=== PATIENT | female | born 1950 | race Caucasian/White ===

== ENCOUNTER 2020-01-24 13:38 | Inpatient (IN) | payer MEDICARE ==
[2020-01-24] MEDS ORDERED: FUROSEMIDE 10 MG/ML 4 ML VIAL IV STA (14:28)
--- NOTE | 2020-01-24 14:32 | ED ---
General Adult HPI - General Source: patient, EMS, RN notes reviewed, old records reviewed Mode of arrival: wheelchair Limitations: no limitations <John Garcia - Last Filed: 01/24/20 15:39> <Santi Shah - Last Filed: 01/25/20 20:08> - General Chief complaint: Psychiatric Symptoms Stated complaint: Mental health Time Seen by Provider: 01/24/20 13:40 - History of Present Illness Initial comments: This is a 69-year-old female who presents emergency Department because she was threatening to kill her and her wanted to come in to be evaluated. Patient stopped taking all of her medications yesterday. Patient does have a psychiatric history. Patient also states she has been swelling in her legs a lot more but she hasn't taken her Lasix last couple of days. Patient denies any chest pain or palpitations. Patient states she is coughing quite a bit and coughing up some sputum. Patient denies any fever chills per patient denies being around anyone with COVID. Patient is somewhat of a poor historian because she is manic and very tangential in her thinking and is difficult to as sess whether she is being accurate or not and at this time the is not available (John Garcia) - Related Data Home Medications Medication Instructions Recorded Confirmed Diltiazem HCl 120 mg PO DAILY 01/24/20 01/24/20 Furosemide [Lasix] 40 mg PO DAILY 01/24/20 01/24/20 Hydrocortisone Oint 1 applic TOPICAL DAILY PRN 01/24/20 01/24/20 [Hydrocortisone 2.5% Oint] Lisinopril 40 mg PO DAILY 01/24/20 01/24/20 Allergies Allergy/AdvReac Type Severity Reaction Status Date / Time influenza virus vaccine, Allergy Swelling Verified 01/24/20 15:00 specific Iodine and Iodide Containing Allergy Rash/Hives Verified 01/24/20 18:10 Produc aspirin AdvReac urinating Verified 01/24/20 15:00 blood codeine AdvReac Nausea Verified 01/24/20 15:00 Review of Systems ROS Other: All systems not noted in ROS Statement are negative. <John Garcia - Last Filed: 01/24/20 15:39> ROS Other: All systems not noted in ROS Statement are negative. <Santi Shah - Last Filed: 01/25/20 20:08> ROS Statement: Those systems with pertinent positive or pertinent negative responses have been documented in the HPI. Past Medical History Past Medical History: COPD, Hypertension History of Any Multi-Drug Resistant Organisms: None Reported Past Surgical History: Hysterectomy, Orthopedic Surgery Past Psychological History: Bipolar Smoking Status: Former smoker Past Alcohol Use History: Occasional Past Drug Use History: None Reported <John Garcia - Last Filed: 01/24/20 15:39> General Exam Limitations: no limitations <John Garcia - Last Filed: 01/24/20 15:39> - General Exam Comments Initial Comments: GENERAL: Patient is well-developed and well-nourished. Patient is nontoxic and well- hydrated and is in mild distress. Patient is coughing quite a bit as well. ENT: Neck is soft and supple. No significant lymphadenopathy is noted. Oropharynx is clear. Moist mucous membranes. Neck has full range of motion without el iciting any pain. EYES: The sclera were anicteric and conjunctiva were pink and moist. Extraocular movements were intact and pupils were equal round and reactive to light. Eyelids were unremarkable. PULMONARY: Patient has crackles bilaterally. CARDIOVASCULAR: There is a regular rate and rhythm without any murmurs gallops or rubs. ABDOMEN: Soft and nontender with normal bowel sounds. SKIN: Skin is clear with no lesions or rashes and otherwise unremarkable. NEUROLOGIC: Patient is alert and oriented x3. Cranial nerves II through XII are grossly intact. Motor and sensory are also intact. Normal speech, volume and content. Symmetrical smile. MUSCULOSKELETAL: Normal extremities with adequate strength and full range of motion. 1+ edema bilaterally LYMPHATICS: No significant lymphadenopathy is noted PSYCHIATRIC: Normal psychiatric evaluation. (John Garcia) Course Vital Signs 01/24/20 01/24/20 01/24/20 13:38 15:50 16:21 Temperature 98.0 F Pulse Rate 69 71 Respiratory 18 Rate Blood Pressure 219/80 209/110 195/97 O2 Sat by Pulse 98 98 Oximetry 01/24/20 01/24/20 01/25/20 17:51 18:53 00:39 Temperature 98.5 F Pulse Rate 74 67 Respiratory 18 16 Rate Blood Pressure 200/118 140/77 129/78 O2 Sat by Pulse 98 96 Oximetry Medical Decision Making - Lab Data Result diagrams: 01/24/20 15:15 01/24/20 15:15 <John Garcia - Last Filed: 01/24/20 15:39> - Lab Data Result diagrams: 01/24/20 15:15 01/24/20 15:15 <Santi Shah - Last Filed: 01/25/20 20:08> - Medical Decision Making EKG shows sinus bradycardia 56 bpm MT interval 260 QRS is 78 QT interval 446 QTC is 4:30. Patient's EKG shows no ST segment elevation or depression. Dr. Shah will be taking over the care of this patient at 3:30 (John Garcia) Patient's care was signed out awaiting workup for dyspnea and cough. Patient had chest x-ray which was negative for acute cardiopulmonary findings. She did have an elevated d-dimer and receives CT angiography which showed a nonspecific groundglass opacity in the right upper lobe no pulmonary embolism, no other acute findings. Blood pressure was initially elevated however the patient had not taken her anti-hypertensive medications were administered in the emergency department and her blood pressure did normalize. She has been medically cleared and is currently awaiting EPS evaluation. (Santi Shah) - Lab Data Lab Results 01/24/20 01/24/20 01/24/20 Range/Units 15:15 15:15 15:15 WBC 11.0 H (3.8-10.6) k/uL RBC 4.70 (3.80-5.40) m/uL Hgb 15.0 (11.4-16.0) gm/dL Hct 44.9 (34.0-46.0) % MCV 95.7 (80.0-100.0) fL MCH 31.9 (25.0-35.0) pg MCHC 33.4 (31.0-37.0) g/dL RDW 12.1 (11.5-15.5) % Plt Count 328 (150-450) k/uL Neutrophils % 70 % Lymphocytes % 18 % Monocytes % 4 % Eosinophils % 5 % Basophils % 1 % Neutrophils # 7.8 H (1.3-7.7) k/uL Lymphocytes # 2.0 (1.0-4.8) k/uL Monocytes # 0.5 (0-1.0) k/uL Eosinophils # 0.5 (0-0.7) k/uL Basophils # 0.1 (0-0.2) k/uL PT 9.4 (9.0-12.0) sec INR 0.9 (<1.2) APTT 24.7 (22.0-30.0) sec D-Dimer 0.85 H (<0.60) mg/L FEU Sodium (137-145) mmol/L Potassium (3.5-5.1) mmol/L Chloride (98-107) mmol/L Carbon Dioxide (22-30) mmol/L Anion Gap mmol/L BUN (7-17) mg/dL Creatinine (0.52-1.04) mg/dL Est GFR (CKD-EPI)AfAm (>60 ml/min/1.73 sqM) Est GFR (CKD-EPI)NonAf (>60 ml/min/1.73 sqM) Glucose (74-99) mg/dL Plasma Lactic Acid David (0.7-2.0) mmol/L Calcium (8.4-10.2) mg/dL Magnesium (1.6-2.3) mg/dL Total Bilirubin (0.2-1.3) mg/dL AST (14-36) U/L ALT (4-34) U/L Alkaline Phosphatase (38-126) U/L Troponin I (0.000-0.034) ng/mL NT-Pro-B Natriuret Pep pg/mL Total Protein (6.3-8.2) g/dL Albumin (3.5-5.0) g/dL Urine Opiates Screen Detected H (NotDetected) Ur Oxycodone Screen Not Detected (NotDetected) Urine Methadone Screen Not Detected (NotDetected) Ur Propoxyphene Screen Not Detected (NotDetected) Ur Barbiturates Screen Not Detected (NotDetected) U Tricyclic Antidepress Not Detected (NotDetected) Ur Phencyclidine Scrn Not Detected (NotDetected) Ur Amphetamines Screen Not Detected (NotDetected) U Methamphetamines Scrn Not Detected (NotDetected) U Benzodiazepines Scrn Not Detected (NotDetected) Urine Cocaine Screen Not Detected (NotDetected) U Marijuana (THC) Screen Not Detected (NotDetected) Coronavirus (PCR) (Not Detectd) 01/24/20 01/24/20 01/24/20 Range/Units 15:15 15:15 15:15 WBC (3.8-10.6) k/uL RBC (3.80-5.40) m/uL Hgb (11.4-16.0) gm/dL Hct (34.0-46.0) % MCV (80.0-100.0) fL MCH (25.0-35.0) pg MCHC (31.0-37.0) g/dL RDW (11.5-15.5) % Plt Count (150-450) k/uL Neutrophils % % Lymphocytes % % Monocytes % % Eosinophils % % Basophils % % Neutrophils # (1.3-7.7) k/uL Lymphocytes # (1.0-4.8) k/uL Monocytes # (0-1.0) k/uL Eosinophils # (0-0.7) k/uL Basophils # (0-0.2) k/uL PT (9.0-12.0) sec INR (<1.2) APTT (22.0-30.0) sec D-Dimer (<0.60) mg/L FEU Sodium 137 (137-145) mmol/L Potassium 4.1 (3.5-5.1) mmol/L Chloride 102 (98-107) mmol/L Carbon Dioxide 27 (22-30) mmol/L Anion Gap 8 mmol/L BUN 21 H (7-17) mg/dL Creatinine 0.69 (0.52-1.04) mg/dL Est GFR (CKD-EPI)AfAm >90 (>60 ml/min/1.73 sqM) Est GFR (CKD-EPI)NonAf 89 (>60 ml/min/1.73 sqM) Glucose 102 H (74-99) mg/dL Plasma Lactic Acid David 0.8 (0.7-2.0) mmol/L Calcium 9.7 (8.4-10.2) mg/dL Magnesium 2.4 H (1.6-2.3) mg/dL Total Bilirubin 0.6 (0.2-1.3) mg/dL AST 27 (14-36) U/L ALT 28 (4-34) U/L Alkaline Phosphatase 69 (38-126) U/L Troponin I <0.012 (0.000-0.034) ng/mL NT-Pro-B Natriuret Pep pg/mL Total Protein 7.4 (6.3-8.2) g/dL Albumin 4.6 (3.5-5.0) g/dL Urine Opiates Screen (NotDetected) Ur Oxycodone Screen (NotDetected) Urine Methadone Screen (NotDetected) Ur Propoxyphene Screen (NotDetected) Ur Barbiturates Screen (NotDetected) U Tricyclic Antidepress (NotDetected) Ur Phencyclidine Scrn (NotDetected) Ur Amphetamines Screen (NotDetected) U Methamphetamines Scrn (NotDetected) U Benzodiazepines Scrn (NotDetected) Urine Cocaine Screen (NotDetected) U Marijuana (THC) Screen (NotDetected) Coronavirus (PCR) (Not Detectd) 01/24/20 01/24/20 Range/Units 15:15 20:06 WBC (3.8-10.6) k/uL RBC (3.80-5.40) m/uL Hgb (11.4-16.0) gm/dL Hct (34.0-46.0) % MCV (80.0-100.0) fL MCH (25.0-35.0) pg MCHC (31.0-37.0) g/dL RDW (11.5-15.5) % Plt Count (150-450) k/uL Neutrophils % % Lymphocytes % % Monocytes % % Eosinophils % % Basophils % % Neutrophils # (1.3-7.7) k/uL Lymphocytes # (1.0-4.8) k/uL Monocytes # (0-1.0) k/uL Eosinophils # (0-0.7) k/uL Basophils # (0-0.2) k/uL PT (9.0-12.0) sec INR (<1.2) APTT (22.0-30.0) sec D-Dimer (<0.60) mg/L FEU Sodium (137-145) mmol/L Potassium (3.5-5.1) mmol/L Chloride (98-107) mmol/L Carbon Dioxide (22-30) mmol/L Anion Gap mmol/L BUN (7-17) mg/dL Creatinine (0.52-1.04) mg/dL Est GFR (CKD-EPI)AfAm (>60 ml/min/1.73 sqM) Est GFR (CKD-EPI)NonAf (>60 ml/min/1.73 sqM) Glucose (74-99) mg/dL Plasma Lactic Acid David (0.7-2.0) mmol/L Calcium (8.4-10.2) mg/dL Magnesium (1.6-2.3) mg/dL Total Bilirubin (0.2-1.3) mg/dL AST (14-36) U/L ALT (4-34) U/L Alkaline Phosphatase (38-126) U/L Troponin I (0.000-0.034) ng/mL NT-Pro-B Natriuret Pep 120 pg/mL Total Protein (6.3-8.2) g/dL Albumin (3.5-5.0) g/dL Urine Opiates Screen (NotDetected) Ur Oxycodone Screen (NotDetected) Urine Methadone Screen (NotDetected) Ur Propoxyphene Screen (NotDetected) Ur Barbiturates Screen (NotDetected) U Tricyclic Antidepress (NotDetected) Ur Phencyclidine Scrn (NotDetected) Ur Amphetamines Screen (NotDetected) U Methamphetamines Scrn (NotDetected) U Benzodiazepines Scrn (NotDetected) Urine Cocaine Screen (NotDetected) U Marijuana (THC) Screen (NotDetected) Coronavirus (PCR) Not Detected (Not Detectd) Disposition <John Garcia - Last Filed: 01/24/20 15:39> Is patient prescribed a controlled substance at d/c from ED?: No Decision to Admit Reason: Admit from EC <Santi Shah - Last Filed: 01/25/20 20:08> Clinical Impression: Depression, Acute psychosis, Homicidal ideation Disposition: ADMITTED IP TO THIS HOSP Condition: Stable
[2020-01-24 15:26] LABS: Basophils # (A) 0.1 k/uL (0-0.2); Basophils % (A) 1 %; Eosinophils # (A) 0.5 k/uL (0-0.7); Eosinophils % (A) 5 %; HCT 44.9 % (34.0-46.0); Lymphocytes % (A) 18 %; MCH 31.9 pg (25.0-35.0); MCHC 33.4 g/dL (31.0-37.0); MCV 95.7 fL (80.0-100.0); Mean Platelet Volume 7.3; Monocytes # (A) 0.5 k/uL (0-1.0); Monocytes % (A) 4 %; Neutrophils # (A) 7.8 k/uL (1.3-7.7); Neutrophils % (A) 70 %; Platelet Count 328 k/uL (150-450); RDW 12.1 % (11.5-15.5)
[2020-01-24 15:33] LABS: ALT 28 U/L (4-34); AST 27 U/L (14-36); African American GFR (CKD) >90 (>60 ml/min/1.73 sqM); Albumin 4.6 g/dL (3.5-5.0); Alkaline Phosphatase 69 U/L (38-126); Anion Gap 8 mmol/L; Blood Urea Nitrogen 21 mg/dL (7-17); Calcium 9.7 mg/dL (8.4-10.2); Carbon Dioxide 27 mmol/L (22-30); Chloride 102 mmol/L (98-107); Glucose 102 mg/dL (74-99); Magnesium 2.4 mg/dL (1.6-2.3); Non-African American GFR(CKD) 89 (>60 ml/min/1.73 sqM); Potassium 4.1 mmol/L (3.5-5.1); Sodium 137 mmol/L (137-145); Total Bilirubin 0.6 mg/dL (0.2-1.3); Total Protein 7.4 g/dL (6.3-8.2)
[2020-01-24 15:35] LABS: Amphetamine Screen,Urine Not Detected (NotDetected); Barbiturate Screen,Urine Not Detected (NotDetected); Benzodiazepines Screen,Urine Not Detected (NotDetected); Cocaine Screen,Urine Not Detected (NotDetected); Methadone Screen, Urine Not Detected (NotDetected); Opiate Screen,Urine Detected (NotDetected); Oxycodone Screen, Urine Not Detected (NotDetected); Phencyclidine Screen,Urine Not Detected (NotDetected); Tricyclic Antidepressant,Urine Not Detected (NotDetected); Urn Cannabinoid Scrn Not Detected (NotDetected)
--- NOTE | 2020-01-24 15:37 | XR ---
EXAMINATION TYPE: XR chest 1V portable DATE OF EXAM: 01/24/2020 COMPARISON: NONE HISTORY: Shortness of breath, cough and congestion TECHNIQUE: Single frontal view of the chest is obtained. FINDINGS: There is no focal air space opacity, pleural effusion, or pneumothorax seen. The cardiac silhouette size is within normal limits. The osseous structures are intact. Patient is rotated. IMPRESSION: No acute process.
[2020-01-24 15:38] LABS: INR 0.9 (<1.2); Partial Thromboplastin Time 24.7 sec (22.0-30.0); Prothrombin Time 9.4 sec (9.0-12.0)
[2020-01-24 15:59] LABS: D-Dimer 0.85 mg/L FEU (<0.60)
[2020-01-24] MEDS ORDERED: LISINOPRIL 20 MG TAB PO STA (16:21)
[2020-01-24] MEDS ORDERED: diphenhydrAMINE 50 MG/ML 1 ML VIAL IVP STA (17:58)
[2020-01-24] MEDS ORDERED: FAMOTIDINE 20 MG/2 ML VIAL IV STA (17:58)
[2020-01-24] MEDS ORDERED: methylPREDNISolone SOD SUCCI 125 MG/2 ML VIAL IV STA (17:58)
[2020-01-24] MEDS ORDERED: DILTIAZEM CD 120 MG CAP.ER.24H PO STA (18:00)
--- NOTE | 2020-01-24 19:04 | CT ---
EXAMINATION TYPE: CT angio chest DATE OF EXAM: 01/24/2020 COMPARISON: Chest x-ray same date HISTORY: Elevated d-dimer. CT DLP: 242.9 mGycm Automated exposure control for dose reduction was used. CONTRAST: CTA scan of the thorax is performed with IV Contrast, patient injected with 100 mL of Isovue 370, pul monary embolism protocol. MIP images are created and reviewed. 3D reconstructed images are created on an independent workstation and reviewed. FINDINGS: LUNGS: The lungs are grossly clear, there is no concerning parenchymal mass or nodule identified. Sub centimeter groundglass focus on axial image 24 in the right upper lobe laterally is of questionable c linical significance. There are scattered emphysematous changes within the lungs. There is no pleur al effusion or pneumothorax seen. The tracheobronchial tree is patent. Bandlike area of increased at tenuation the left lung base may reflect scarring or atelectasis. AORTA: No additional significant abnormality is seen. MEDIASTINUM: There is satisfactory enhancement of the pulmonary artery and its branches, there is no CT evidence for pulmonary embolism. There are no greater than 1 cm hilar or mediastinal lymph nodes. No pericardial effusion is seen. There are coronary calcifications. OTHER: There is a left adrenal mass which shows low attenuation and measures approximately 13 mm. Le ft kidney shows possible parapelvic cysts, difficult to exclude hydronephrosis. There is thoracic spo ndylosis. IMPRESSION: NONSPECIFIC GROUNDGLASS NODULE QUESTIONABLE SIGNIFICANCE RIGHT UPPER LOBE. NO EVIDENT PULMONARY EMBOL US. EMPHYSEMATOUS CHANGES ARE MILD. CORONARY ARTERY DISEASE.
[2020-01-24] MEDS ORDERED: LORazepam 2 MG/ML INJ IV STA (22:01)
[2020-01-25] MEDS ORDERED: ZIPRASIDONE 20 MG VIAL IM PRN (00:21)
[2020-01-25] MEDS ORDERED: ACETAMINOPHEN TAB 325 MG TAB PO PRN (00:21)
[2020-01-25] MEDS ORDERED: MAG HYDROX/AL HYDROX/SIMETH 30 ML CUP PO PRN (00:21)
[2020-01-25] MEDS ORDERED: TRIAMCINOLONE ACET 0.1% OINTMENT 15 GM TUBE TOPICAL PRN (00:24)
[2020-01-25] MEDS ORDERED: LISINOPRIL 20 MG TAB PO SCH (09:00)
[2020-01-25] MEDS: DILTIAZEM CD 120 MG CAP.ER.24H PO SCH (09:29)
--- NOTE | 2020-01-25 10:34 | P.PN ---
Progress Note - Text Progress Note Date: 01/25/20 IDENTIFYING DATA: Patient is a 69-year-old female who currently lives with her in a house has 3 kids HPI: Patient presented to the hospital and was brought in by her who according to ER report is claiming that she was threatening to kill him. Patient was a poor historian in the ER however was exhibiting manic symptoms and evaluated by EPS and team for admission to the mental health unit. Patient apparently has a extensive psychiatric history. She was seen on the unit rambling with pressured speech and was fairly intrusive with staff members. She was agreeable to speak with appeals writer however was difficult to interrupt during the interview. She was tangential and illogical at times and was also bizarre and laughing inappropriately. She spoke about "moving all around the country" and also spoke significantly about [place]. She had racing thoughts and a flight of ideas. She claims that she has poor sleep. Patient was responding to internal stimuli. Patient denies any suicidal or homicidal ideations intent or plan. At this time patient denies any auditory or visual hallucinations. Patient admits to using alcohol occasionally however states that she does not smoke cigarettes or did any other drugs. PAST PSYCHIATRIC HISTORY: Patient states that she has a history of bipolar disorder and has an outpatient psychiatrist named Dr. De Paz. She claims that she was hospitalized "28 years ago when the little ones were small" however did not give much information about the hospitalization and claims that he was at [facility]. She denies any suicide attempts in the past PMH: COPD and hypertension and hyperlipidemia. ALLERGIES: as per EMR CHEMICAL DEPENDENCY HISTORY: as per HPI FAMILY PSYCHIATRIC/SUBSTANCE USE HISTORY: She states that her mother was schizophrenic. SOCIAL HISTORY: Patient was born and raised in [place]. Patient currently lives in [place] with her in a house. She states that she has 3 kids. MENTAL STATUS EXAM: General Appearance: Patient appears to be stated age is short in stature, alert, difficult to redirect and is bizarre and intrusive. Patient appears to have poor hygiene and grooming. Behavior: Patient is seated at times and stands up and appears to be restless and intrusive. Speech: Patient's speech is pressured Mood/Affect: Patient reports their mood is good, affect is congruent Suicidality/Homicidality: Patient denies having any homicidal ideation intent or plan. Denies any suicidal ideations intent or plan Perceptions: Patient denies any visual hallucinations and denies any auditory hallucinations Though content/process: Rambles, illogical, tangential flight of ideas. Memory and concentration: AOX3, unable to fully assess as patient is poor attention span. Judgment and insight: poor STRENGTHS/WEAKNESSES: strength is that patient is resilient. Weakness is that patient has poor judgment and is impulsive INTELLECT: average IMPRESSIONS: Bipolar disorder, severe, currently in manic episode with psychotic features PLAN: -Patient is admitted under involuntary status to MHU for stabilization of psychiatric symptoms and safety. A second certification was completed and along with petition will be filed for court. -Medications : Will start patient on Depakote ER 250mg + 500mg for mood stabilization. We'll also start Risperdal 1 mg twice a day for mood stabilization/psychosis. -Geodon PRN for agitation/aggression -Patient was informed of the risks, benefits and side effects of the medication, however patient refused to sign her medications. -Internal Medicine consult to perform medical evaluation and physical. -NRT - not needed as patient does not smoke -SW on board for discharge planning. Encourage patient to participate in groups to work on coping skills.
[2020-01-25] MEDS: risperiDONE 1 MG TAB PO SCH ×2 (10:51→21:52)
[2020-01-25] MEDS: DIVALPROEX ER 250 MG TAB.ER.24H PO SCH (10:51)
[2020-01-25] MEDS: FUROSEMIDE 40 MG TAB PO SCH (10:51)
[2020-01-25 11:28] LABS: Hemoglobin A1C 5.1 % (4.0-6.0)
--- NOTE | 2020-01-25 21:10 | P.HPIM ---
History of Present Illness H&P Date: 01/25/20 The patient is a 69-year-old female with a PMH of asthma, hypertension, and bipolar disorder who was brought into the ED due to aggressive behavior. The patient had reportedly threatened to kill her and had stopped taking her medications. Patient was noted to be very manic and was admitted to the mental health unit she was seen and evaluated earlier today. The patient was manic during the interview and had tangential thought process. Patient reported that she has been dealing with a nonproductive cough for the past several weeks. She also bilateral lower extremity edema, recently worsened after she stopped taking her Lasix. She denied chest pain, nausea, vomiting, fever, chills, diaphoresis, or diarrhea. She had undergone an extensive evaluation in the emergency room with an EKG showing sinus bradycardia at [address]/T-wave changes noted. She had an elevated d-dimer for which a chest CTA was performed and revealed nonspecific groundglass opacities with no evidence of PE. Laboratory evaluation had revealed a WBC count of 11, hemoglobin 15.0, platelet count 328, troponin less than 0.012, BNP 120, sodium 137, potassium 4.1, BUN 21, creatinine 0.69, and coronavirus testing negative. Review of Systems Pertinent positives and negatives as discussed in HPI, a complete review of systems was performed and all other systems are negative. Past Medical History Past Medical History: COPD, Hypertension History of Any Multi-Drug Resistant Organisms: None Reported Past Surgical History: Hysterectomy, Orthopedic Surgery Past Psychological History: Bipolar Smoking Status: Former smoker Past Alcohol Use History: Occasional Past Drug Use History: None Reported Medications and Allergies Home Medications Medication Instructions Recorded Confirmed Type Diltiazem HCl 120 mg PO DAILY 01/24/20 01/24/20 History Furosemide [Lasix] 40 mg PO DAILY 01/24/20 01/24/20 History Hydrocortisone Oint 1 applic TOPICAL DAILY PRN 01/24/20 01/24/20 History [Hydrocortisone 2.5% Oint] Lisinopril 40 mg PO DAILY 01/24/20 01/24/20 History Allergies Allergy/AdvReac Type Severity Reaction Status Date / Time influenza virus vaccine, Allergy Swelling Verified 01/24/20 15:00 specific Iodine and Iodide Containing Allergy Rash/Hives Verified 01/24/20 18:10 Produc aspirin AdvReac urinating Verified 01/24/20 15:00 blood codeine AdvReac Nausea Verified 01/24/20 15:00 Physical Exam Vitals: Vital Signs Temp Pulse Pulse Pulse Resp BP BP 01/25/20 18:19 98.3 F 01/25/20 10:52 83 135/77 01/25/20 01:45 96.8 F L 77 20 163/90 01/25/20 00:39 98.5 F 67 16 129/78 Pulse Ox 01/25/20 18:19 01/25/20 10:52 01/25/20 01:45 96 01/25/20 00:39 96 Intake and Output 01/25/20 01/25/20 01/25/20 06:59 14:59 22:59 Other: Weight 67.585 kg General: non toxic, no distress, appears at stated age, normal weight Derm: no unusual rashes/lesions no unusual ecchymoses, warm, dry Head: atraumatic, normocephalic, symmetric Eyes: EOMI, no lid lag, anicteric sclera, pupils equal round reactive to light ENT: Nose and ears atraumatic, no thrush, no pharyngeal erythema Neck: No thyromegaly, no cervical lymphadenopathy, trachea midline, supple Mouth: no lip lesion, mucus membranes moist Cardiovascular: S1S2 reg, no murmur, positive posterior tibial pulse bilateral, 1+ tavo LE edema to knees, capillary refill less than 2 seconds Lungs: CTA bilateral, no rhonchi, no rales , no accessory muscle use Abdominal: soft, nontender to palpation, no guarding, no appreciable organomegaly, normal bowel sounds Ext: no gross muscle atrophy, muscle strength 5 out of 5 in all 4 extremities grossly, no contractures Neuro: CN II-XI grossly intact, light touch intact all 4 extremities, finger to nose within normal limits Psych: Alert, oriented, disorganized thought process with tangentiality affect Results CBC & Chem 7: 01/24/20 15:15 01/24/20 15:15 Labs: Abnormal Lab Results - Last 24 Hours (Table) 01/25/20 Range/Units 06:36 Cholesterol 230 H (<200) mg/dL HDL Cholesterol 120 H (40-60) mg/dL Assessment and Plan Plan: Mild acute asthma exacerbation -Start prednisone 40 mg po qd for 1 week -Albuterol inhaler round the clock -Patient will benefit from rescue inhaler upon discharge HALEY edema -BNP wnl -C/w home dose of Lasix HTN -Patient nores hx of reaction with Lisinopril -BP wnl for now -Monitor for now -Unclear why patient is on Cardizem po Bipolar disorder -As per psych
[2020-01-25] MEDS: predniSONE 20 MG TAB PO SCH (21:52)
[2020-01-25] MEDS: DIVALPROEX ER 500 MG TAB.ER.24H PO SCH (21:52)
[2020-01-26] MEDS: DILTIAZEM CD 120 MG CAP.ER.24H PO SCH (08:07)
[2020-01-26] MEDS: predniSONE 20 MG TAB PO SCH (08:07)
[2020-01-26] MEDS: DIVALPROEX ER 250 MG TAB.ER.24H PO SCH (08:07)
[2020-01-26] MEDS: FUROSEMIDE 40 MG TAB PO SCH (08:07)
[2020-01-26] MEDS: risperiDONE 1 MG TAB PO SCH ×2 (08:07→20:30)
[2020-01-26] MEDS: ALBUTEROL NEBULIZED 2.5 MG/3 ML INHALATION SCH ×4 (09:31→20:02)
--- NOTE | 2020-01-26 09:38 | P.HP ---
Psychiatric H&P - . H&P Date: 01/25/20 History & Physical: Allergies Allergy/AdvReac Type Severity Reaction Status Date / Time influenza virus vaccine, Allergy Swelling Verified 01/24/20 15:00 specific Iodine and Iodide Containing Allergy Rash/Hives Verified 01/24/20 18:10 Produc aspirin AdvReac urinating Verified 01/24/20 15:00 blood codeine AdvReac Nausea Verified 01/24/20 15:00 Vital Signs Temp 98.8 F 01/26/20 06:14 Pulse 85 01/26/20 06:14 Resp 16 01/26/20 06:14 BP 155/88 01/26/20 06:14 Pulse Ox 96 01/25/20 01:45 Laboratory Last Values WBC 11.0 k/uL (3.8-10.6) H 01/24/20 15:15 RBC 4.70 m/uL (3.80-5.40) 01/24/20 15:15 Hgb 15.0 gm/dL (11.4-16.0) 01/24/20 15:15 Hct 44.9 % (34.0-46.0) 01/24/20 15:15 MCV 95.7 fL (80.0-100.0) 01/24/20 15:15 MCH 31.9 pg (25.0-35.0) 01/24/20 15:15 MCHC 33.4 g/dL (31.0-37.0) 01/24/20 15:15 RDW 12.1 % (11.5-15.5) 01/24/20 15:15 Plt Count 328 k/uL (150-450) 01/24/20 15:15 Neutrophils % 70 % 01/24/20 15:15 Lymphocytes % 18 % 01/24/20 15:15 Monocytes % 4 % 01/24/20 15:15 Eosinophils % 5 % 01/24/20 15:15 Basophils % 1 % 01/24/20 15:15 Neutrophils # 7.8 k/uL (1.3-7.7) H 01/24/20 15:15 Lymphocytes # 2.0 k/uL (1.0-4.8) 01/24/20 15:15 Monocytes # 0.5 k/uL (0-1.0) 01/24/20 15:15 Eosinophils # 0.5 k/uL (0-0.7) 01/24/20 15:15 Basophils # 0.1 k/uL (0-0.2) 01/24/20 15:15 PT 9.4 sec (9.0-12.0) 01/24/20 15:15 INR 0.9 (<1.2) 01/24/20 15:15 APTT 24.7 sec (22.0-30.0) 01/24/20 15:15 D-Dimer 0.85 mg/L FEU (<0.60) H 01/24/20 15:15 Sodium 137 mmol/L (137-145) 01/24/20 15:15 Potassium 4.1 mmol/L (3.5-5.1) 01/24/20 15:15 Chloride 102 mmol/L (98-107) 01/24/20 15:15 Carbon Dioxide 27 mmol/L (22-30) 01/24/20 15:15 Anion Gap 8 mmol/L 01/24/20 15:15 BUN 21 mg/dL (7-17) H 01/24/20 15:15 Creatinine 0.69 mg/dL (0.52-1.04) 01/24/20 15:15 Est GFR (CKD-EPI)AfAm >90 (>60 ml/min/1.73 sqM) 01/24/20 15:15 Est GFR (CKD-EPI)NonAf 89 (>60 ml/min/1.73 sqM) 01/24/20 15:15 Glucose 102 mg/dL (74-99) H 01/24/20 15:[address] Glu mg/dL 100 01/25/20 06:36 Hemoglobin A1c 5.1 % (4.0-6.0) 01/25/20 06:36 Plasma Lactic Acid David 0.8 mmol/L (0.7-2.0) 01/24/20 15:15 Calcium 9.7 mg/dL (8.4-10.2) 01/24/20 15:15 Magnesium 2.4 mg/dL (1.6-2.3) H 01/24/20 15:15 Total Bilirubin 0.6 mg/dL (0.2-1.3) 01/24/20 15:15 AST 27 U/L (14-36) 01/24/20 15:15 ALT 28 U/L (4-34) 01/24/20 15:15 Alkaline Phosphatase 69 U/L (38-126) 01/24/20 15:15 Troponin I <0.012 ng/mL (0.000-0.034) 01/24/20 15:15 NT-Pro-B Natriuret Pep 120 pg/mL 01/24/20 15:15 Total Protein 7.4 g/dL (6.3-8.2) 01/24/20 15:15 Albumin 4.6 g/dL (3.5-5.0) 01/24/20 15:15 Triglycerides 56 mg/dL (<150) 01/25/20 06:36 Cholesterol 230 mg/dL (<200) H 01/25/20 06:36 LDL Cholesterol, Calc 99 mg/dL (0-99) 01/25/20 06:36 HDL Cholesterol 120 mg/dL (40-60) H 01/25/20 06:36 TSH 0.521 mIU/L (0.465-4.680) 01/25/20 06:36 Urine Opiates Screen Detected (NotDetected) H 01/24/20 15:15 Ur Oxycodone Screen Not Detected (NotDetected) 01/24/20 15:15 Urine Methadone Screen Not Detected (NotDetected) 01/24/20 15:15 Ur Propoxyphene Screen Not Detected (NotDetected) 01/24/20 15:15 Ur Barbiturates Screen Not Detected (NotDetected) 01/24/20 15:15 U Tricyclic Antidepress Not Detected (NotDetected) 01/24/20 15:15 Ur Phencyclidine Scrn Not Detected (NotDetected) 01/24/20 15:15 Ur Amphetamines Screen Not Detected (NotDetected) 01/24/20 15:15 U Methamphetamines Scrn Not Detected (NotDetected) 01/24/20 15:15 U Benzodiazepines Scrn Not Detected (NotDetected) 01/24/20 15:15 Urine Cocaine Screen Not Detected (NotDetected) 01/24/20 15:15 U Marijuana (THC) Screen Not Detected (NotDetected) 01/24/20 15:15 Coronavirus (PCR) Not Detected (Not Detectd) 01/24/20 20:06 01/26/20 09:37 IDENTIFYING DATA: Patient is a 69-year-old female who currently lives with her in a house has 3 kids HPI: Patient presented to the hospital and was brought in by her who according to ER report is claiming that she was threatening to kill him. Patient was a poor historian in the ER however was exhibiting manic symptoms and evaluated by EPS and team for admission to the mental health unit. Patient apparently has a extensive psychiatric history. She was seen on the unit rambling with pressured speech and was fairly intrusive with staff members. She was agreeable to speak with remote mortgage underwriter however was difficult to interrupt during the interview. She was tangential and illogical at times and was also bizarre and laughing inappropriately. She spoke about "moving all around the country" and also spoke significantly about [place]. She had racing thoughts and a flight of ideas. She claims that she has poor sleep. Patient was responding to internal stimuli. Patient denies any suicidal or homicidal ideations intent or plan. At this time patient denies any auditory or visual hallucinations. Patient admits to using alcohol occasionally however states that she does not smoke cigarettes or did any other drugs. PAST PSYCHIATRIC HISTORY: Patient states that she has a history of bipolar disorder and has an outpatient psychiatrist named Dr. De Paz. She claims that she was hospitalized "28 years ago when the little ones were small" however did not give much information about the hospitalization and claims that he was at [facility]. She denies any suicide attempts in the past PMH: COPD and hypertension and hyperlipidemia. ALLERGIES: as per EMR CHEMICAL DEPENDENCY HISTORY: as per HPI FAMILY PSYCHIATRIC/SUBSTANCE USE HISTORY: She states that her mother was schizophrenic. SOCIAL HISTORY: Patient was born and raised in [facility]. Patient currently lives in [place] with her in a house. She states that she has 3 kids. MENTAL STATUS EXAM: General Appearance: Patient appears to be stated age is short in stature, alert, difficult to redirect and is bizarre and intrusive. Patient appears to have poor hygiene and grooming. Behavior: Patient is seated at times and stands up and appears to be restless and intrusive. Speech: Patient's speech is pressured Mood/Affect: Patient reports their mood is good, affect is congruent Suicidality/Homicidality: Patient denies having any homicidal ideation intent or plan. Denies any suicidal ideations intent or plan Perceptions: Patient denies any visual hallucinations and denies any auditory hallucinations Though content/process: Rambles, illogical, tangential flight of ideas. Memory and concentration: AOX3, unable to fully assess as patient is poor attention span. Judgment and insight: poor STRENGTHS/WEAKNESSES: strength is that patient is resilient. Weakness is that patient has poor judgment and is impulsive INTELLECT: average IMPRESSIONS: Bipolar disorder, severe, currently in manic episode with psychotic features PLAN: -Patient is admitted under involuntary status to MHU for stabilization of psyc hiatric symptoms and safety. A second certification was completed and along with petition will be filed for court. -Medications : Will start patient on Depakote ER 250mg + 500mg for mood stabilization. We'll also start Risperdal 1 mg twice a day for mood stabilization/psychosis. -Geodon PRN for agitation/aggression -Patient was informed of the risks, benefits and side effects of the medication, however patient refused to sign her medications. -Internal Medicine consult to perform medical evaluation and physical. -NRT - not needed as patient does not smoke -SW on board for discharge planning. Encourage patient to participate in groups to work on coping skills. Patient was seen and evaluated and no was dictated on 01/25/2020.
--- NOTE | 2020-01-26 09:43 | P.PN ---
Progress Note - Text Progress Note Date: 01/26/20 Interval History: Patient was seen laying down in her bed this morning and was directable and ag reeable to speak with manual writer in the office. Patient appeared to be mildly calmer and with improved attention span. Patient was more directable during the interview and more appropriate. She continues to have some racing thoughts however this has been improving. She states that her mood is doing "well" and denies any depression at this time. She continues to state that she has some racing thoughts but was able to sleep last night throughout the night. She spoke about her antibiotic for her respiratory infection that she has not started yet. Patient was more logical and goal oriented today. At this time patient denies any suicidal or homical ideations, intent or plan. Patient denies any auditory, visual hallucinations and denies any paranoia or delusions. Patient denies any side effects from the medications and has been compliant with meds. Mental Status Exam: General Appearance: Patient appears to be stated age is short in stature, alert, less intrusive and more directable today. Patient appears to have improved hygiene and grooming. Behavior: Patient is calm her and more cooperative. Speech: Patient's speech is pressured, improving. Mood/Affect: Patient reports their mood is "well", affect is congruent Suicidality/Homicidality: Patient denies having any homicidal ideation intent or plan. Denies any suicidal ideations intent or plan Perceptions: Patient denies any visual hallucinations and denies any auditory hallucinations Though content/process: Rambles, flight of ideas has been improving. More goal oriented and logical. Memory and concentration: AOX3, improved attention span. Judgment and insight: poor, improving mildly. Assessment Bipolar disorder, severe, currently in manic episode with psychotic features Plan: -Patient continues to meet criteria for inpatient psychiatric admission for symptom stabilization and safety. Patient has not signed adult voluntary form or medication consent. Awaiting court date and deferral date. -Medications: Continue Depakote ER 250 mg +500 mg for mood stabilization. Continue with Risperdal 1 mg twice a day for mood stabilization/psychosis. -When necessary Geodon for agitation/aggression. -NRT -not needed as patient does not smoke. -SW on board for discharge planning. Encouraged the patient to participate in milieu. Awaiting court date and deferral date.
[2020-01-26] MEDS: MAGNESIUM HYDROXIDE 2,400 MG/10 ML CUP PO PRN (09:49)
[2020-01-26] MEDS: DIVALPROEX ER 500 MG TAB.ER.24H PO SCH (20:30)
[2020-01-27] MEDS: FUROSEMIDE 40 MG TAB PO SCH (09:21)
[2020-01-27] MEDS: risperiDONE 1 MG TAB PO SCH ×2 (09:21→09:25)
[2020-01-27] MEDS: DILTIAZEM CD 120 MG CAP.ER.24H PO SCH (09:21)
[2020-01-27] MEDS: DIVALPROEX ER 250 MG TAB.ER.24H PO SCH (09:22)
[2020-01-27] MEDS: SENNOSIDES-DOCUSATE SODIUM 1 EACH TAB PO SCH ×2 (09:22→20:04)
[2020-01-27] MEDS: predniSONE 20 MG TAB PO SCH (09:22)
[2020-01-27] MEDS: ALBUTEROL NEBULIZED 2.5 MG/3 ML INHALATION SCH ×2 (09:25→12:46)
--- NOTE | 2020-01-27 09:40 | P.PN ---
Progress Note - Text Progress Note Date: 01/27/20 Interval History: Patient was seen waiting in line for her medications this morning and was dire ctable and agreeable to speak with global technical writer in the office. Patient patient is continuing to be hyperverbal and talkative during the interview. Patient was also tangential and spoke about her daughter and also several different somatic symptoms that she is experiencing including constipation and abdominal pain and other pain in her body and then began speaking about her several medications. Patient continues to ramble however was logical and non-bizarre. He did not endorse any delusions at this time. She continues to have some racing thoughts however this has been improving and has an improvement in her insight and judgment. She states that her mood is doing "ok" and denies any depression at this time. She states that she was able to sleep last night throughout the night however did claim that she had frequent awakenings and continued racing thoughts at night. At this time patient denies any suicidal or homical ideations, intent or plan. Patient denies any auditory, visual hallucinations and denies any paranoia or delusions. Patient denies any side effects from the medications and has been compliant with meds. Mental Status Exam: General Appearance: Patient appears to be stated age is short in stature, alert, intrusive and more directable today. Patient appears to have improved hygiene and grooming. Behavior: Patient is calm her and more cooperative. Speech: Patient's speech is pressured, improving. Mood/Affect: Patient reports their mood is "ok", affect is congruent Suicidality/Homicidality: Patient denies having any homicidal ideation intent or plan. Denies any suicidal ideations intent or plan Perceptions: Patient denies any visual hallucinations and denies any auditory hallucinations Though content/process: Rambles, flight of ideas has been improving. Tangential at times however is More goal oriented and logical. Memory and concentration: AOX3, improved attention span. Judgment and insight: improving mildly. Assessment Bipolar disorder, severe, currently in manic episode with psychotic features Plan: -Patient continues to meet criteria for inpatient psychiatric admission for symptom stabilization and safety. Patient has not signed adult voluntary form or medication consent. Awaiting court date and deferral date. -Medications: Increased Depakote ER 250 mg + 750 mg for mood stabilization. Increased Risperdal 1 mg daily +2 mg daily at bedtime for mood stabilization/psychosis. -Patient's blood pressure is elevated at this time and is currently not on her home doses of antihypertensives. Will ask internal medicine to evaluate patient's need for prednisone and to different further recommendations of patient's antihypertensive medications. -When necessary Geodon for agitation/aggression. -NRT -not needed as patient does not smoke. -SW on board for discharge planning. Encouraged the patient to participate in milieu. Awaiting court date and deferral date.
[2020-01-27] MEDS: MAGNESIUM HYDROXIDE 2,400 MG/10 ML CUP PO PRN (12:48)
--- NOTE | 2020-01-27 15:42 | P.PN ---
Subjective Progress Note Date: 01/27/20 Principal diagnosis: Cough Patient is a 69-year-old female with asthma, hypertension, and bipolar disorder who was brought into the ER secondary to aggressive this behaviors and has been admitted to the mental health unit. On arrival she was diagnosed with mild acute exacerbation of asthma and started on prednisone 40 mg. We have been asked to reevaluate her secondary to elevated blood pressures and continued psychosis. Patient seen and examined at bedside. She has a flight of ideas and has difficulty concentrating on one task. She states that her cough is better, yoon es wheezing, denies shortness of breath. She complains of a redness on the palms of her hands, increasing lower extremity edema, and facial flushing. She thought she was having ALLERGIC reaction to the prednisone. We discussed that in the outpatient setting she had a trial of methylprednisolone prescribed by her PCP on 01/12. This is a different medication than prednisone. She also states that she has had an ALLERGIC reaction to lisinopril, though she cannot specify what it is but only to the pink pill not the yellow or the white form of the medication. Objective - Vital Signs Vital signs: Vital Signs Temp 97.5 F L 01/27/20 13:00 Pulse 88 01/27/20 09:38 Resp 16 01/27/20 06:52 BP 164/75 01/27/20 09:17 Pulse Ox 97 01/27/20 06:52 Intake & Output 01/26/20 01/27/20 01/27/20 18:59 06:59 18:59 Weight 71.4 kg - Exam General: non toxic, no distress, appears at stated age Derm: warm, dry Head: atraumatic, normocephalic, symmetric Eyes: EOMI, no lid lag, anicteric sclera Mouth: no lip lesion, mucus membranes moist Cardiovascular: S1S2 reg, no murmur, positive posterior tibial pulse bilateral, Lungs: CTA bilateral, no rhonchi, no rales , no accessory muscle use Abdominal: soft, nontender to palpation, no guarding, no appreciable organomegaly Ext: no gross muscle atrophy, 2+ nonpitting edema bilateral, no contractures Psych: Alert, oriented to situation, flight of ideas, difficulty with concentration, + shuffling gait - Labs CBC & Chem 7: 01/24/20 15:15 01/24/20 15:15 Assessment and Plan Assessment: Asthma with chronic cough -Acute exacerbation resolved -Stop prednisone converted to Symbicort which may be stopped on discharge -As needed albuterol -Outpatient follow-up with her systems engineer Dr. Lopez - CTA with TUL ground glass opacification, negative for pulmonary embolism Hypertension, accelerated -Resume her lisinopril -Follow blood pressures -Continue with Cardizem and Lasix Bipolar disorder -Your psych management
[2020-01-27] MEDS: LISINOPRIL 20 MG TAB PO SCH (16:41)
[2020-01-27] MEDS: SYMBICORT 80-4.5 MCG INHALER INHALATION SCH (20:02)
[2020-01-27] MEDS: risperiDONE 2 MG TAB PO SCH (20:03)
[2020-01-27] MEDS ORDERED: DIVALPROEX ER 250 MG TAB.ER.24H PO SCH (21:00)
[2020-01-28] MEDS: LISINOPRIL 20 MG TAB PO SCH (07:10)
--- NOTE | 2020-01-28 08:46 | P.PN ---
Progress Note - Text Progress Note Date: 01/28/20 Interval History: Patient was seen coming out of the dining beyer after her breakfast this morning and was directable and agreeable to speak with news writer in the office. Patient patient is continuing to be hyperverbal and talkative during the interview however was more redirectable today. She was somatically preoccupied and speaking about "the shakes" in her hands and also spoke about "heart palpitations" and other somatic issues. She also claims that she wants to do outpatient therapy instead of being in the hospital. Patient continues to ramble however was logical and non-bizarre. She did not endorse any delusions at this time. She continues to have some racing thoughts, however there is some improvement in her insight and judgment. She states that her mood is doing "fine" and denies any depression at this time. She states that she was able to sleep last night and claims that she did have some awakenings last night to go to the bathroom and due to noise on the unit. At this time patient denies any suicidal or homical ideations, intent or plan. Patient denies any auditory, v isual hallucinations and denies any paranoia or delusions. Patient has been compliant with meds. Mental Status Exam: General Appearance: Patient appears to be stated age is short in stature, alert, and more directable today. Patient appears to have improved hygiene and grooming. Behavior: Patient is calmer and more cooperative. Speech: Patient's speech is pressured, improving mildly. Mood/Affect: Patient reports their mood is "fine", affect is congruent Suicidality/Homicidality: Patient denies having any homicidal ideation intent or plan. Denies any suicidal ideations intent or plan Perceptions: Patient denies any visual hallucinations and denies any auditory hallucinations Though content/process: Rambles, flight of ideas has been improving. Tangential, somatically preoccupied Memory and concentration: AOX3, improved attention span. Judgment and insight: improving mildly. Assessment Bipolar disorder, severe, currently in manic episode with psychotic features Plan: -Patient continues to meet criteria for inpatient psychiatric admission for symptom stabilization and safety. Patient has not signed adult voluntary form or medication consent. Awaiting court date and deferral date. -Medications: Changed Depakote ER 500 mg twice a day for mood stabilization. Continue with Risperdal 1 mg daily +2 mg daily at bedtime for mood stabilization/psychosis. We'll continue to monitor for signs of side effects with medications -Ordered Depakene level tomorrow. -Appreciate internal medicine recommendations with regards to blood pressure medication management and stopping prednisone which may have been exacerbating patient's manic state. -When necessary Geodon for agitation/aggression. -NRT -not needed as patient does not smoke. -SW on board for discharge planning. Encouraged the patient to participate in milieu. Deferral date today and full court hearing on 02/05/2020. Likely discharge late this week.
[2020-01-28] MEDS: risperiDONE 1 MG TAB PO SCH (08:57)
[2020-01-28] MEDS: SENNOSIDES-DOCUSATE SODIUM 1 EACH TAB PO SCH ×2 (08:57→21:13)
[2020-01-28] MEDS: DILTIAZEM CD 120 MG CAP.ER.24H PO SCH (08:57)
[2020-01-28] MEDS: DIVALPROEX ER 500 MG TAB.ER.24H PO SCH ×2 (08:57→21:13)
[2020-01-28] MEDS: FUROSEMIDE 40 MG TAB PO SCH (08:57)
[2020-01-28] MEDS: ALBUTEROL NEBULIZED 2.5 MG/3 ML INHALATION SCH ×5 (09:19→20:34)
[2020-01-28] MEDS: SYMBICORT 80-4.5 MCG INHALER INHALATION SCH ×2 (09:19→21:14)
[2020-01-28] MEDS: risperiDONE 2 MG TAB PO SCH (21:13)
[2020-01-29 05:22] VITALS: TEMP 98.1
[2020-01-29] MEDS: ALBUTEROL NEBULIZED 2.5 MG/3 ML INHALATION SCH ×2 (05:35→10:54)
[2020-01-29] MEDS: SYMBICORT 80-4.5 MCG INHALER INHALATION SCH ×2 (05:35→05:47)
[2020-01-29 06:35] VITALS: BP 157/80; PULSE 82; RESP 16
[2020-01-29] MEDS: FUROSEMIDE 40 MG TAB PO SCH (10:22)
[2020-01-29] MEDS: risperiDONE 1 MG TAB PO SCH (10:22)
[2020-01-29] MEDS: DILTIAZEM CD 120 MG CAP.ER.24H PO SCH (10:22)
[2020-01-29] MEDS: LISINOPRIL 20 MG TAB PO SCH (10:22)
[2020-01-29] MEDS: DIVALPROEX ER 500 MG TAB.ER.24H PO SCH (10:22)
[2020-01-29] MEDS: SENNOSIDES-DOCUSATE SODIUM 1 EACH TAB PO SCH (10:23)
--- NOTE | 2020-01-29 11:10 | P.DS ---
Providers Date of admission: 01/25/20 00:17 Expected date of discharge: 01/29/20 Attending physician: Messi Dinh MD Consults: 01/25/20 00:21 Consult Physician Routine Consulting Provider: Marvin Hendricks Consult Reason/Comments: Medical Management Do you want consulting provider notified?: Yes Primary care physician: Stated None - Discharge Diagnosis(es) (1) Bipolar disorder with severe onelia Current Visit: Yes Status: Acute Priority: High Hospital Course: Admission HPI: Patient is a 69-year-old female who currently lives with her in a house has 3 kids. Patient presented to the hospital and was brought in by her who according to ER report is claiming that she was threatening to kill him. Patient was a poor historian in the ER however was exhibiting manic symptoms and evaluated by EPS and team for admission to the mental health unit. Patient apparently has a extensive psychiatric history. She was seen on the unit rambling with pressured speech and was fairly intrusive with staff members. She was agreeable to speak with public relations writer however was difficult to interrupt during the interview. She was tangential and illogical at times and was also bizarre and laughing inappropriately. She spoke about "moving all around the country" and also spoke significantly about [place]. She had racing thoughts and a flight of ideas. She claims that she has poor sleep. Patient was responding to internal stimuli. Patient denies any suicidal or homicidal ideations intent or plan. At this time patient denies any auditory or visual hallucinations. Patient admits to using alcohol occasionally however states that she does not s moke cigarettes or did any other drugs. Hospital course: Upon admission to the unit patient was initially displaying severe manic symptoms including pressured speech, intrusiveness and flight of ideas. Patient was however directable and agreeable to commence treatment. Patient did not sign voluntary however didn't sign deferral for treatment on 01/28/2020. Patient got along well with other patients on the unit and followed unit protocol. Patient was compliant with the medications and denied any side effects throughout hospital course. Patient was started on Risperdal and titrated up to a dose of 1 mg daily +2 mg nightly for mood stabilization/psychosis. Patient was also started on Depakote ER 500 mg twice a day for mood stabilization. Depakote level on 01/29/2020 was 91.9. Patient spoke of her stressors and engaged in therapy both group and individual. Patient was also seen by medical team for history and physical exam. Patient had a chest x-ray completed on 01/24/2020 for shortness of breath cough and congestion which showed no acute process. Patient also had a CT angiogram chest on 01/24/2024 and elevated d-dimer which showed nonspecific ground glass nodule with questionable significance in the right upper lobe. No evident pulmonary embolus was noted and emphysematous changes were mild with no coronary artery disease. Patient was placed back on her inhalers for COPD along with home blood pressure medications. Throughout the course of the hospitalization patient gradually improved with regards to mood, lability, sleep and became future oriented with improved insight and judgment. On the day of discharge patient denied any suicidal or homicidal ideations intent or plan denied any auditory or visual hallucinations. Patient endorsed wanting to live for her health and family. Patient denied any paranoia and did not endorse any delusions. Patient does not have a significant history of substance abuse however was counseled on abstaining from all substances inclu ding alcohol and marijuana. Patient was also counseled on the medications and need for regular compliance and was encouraged to follow-up with their outpatient appointment for mental health and also for primary care. Prior to discharge a family meeting will be arranged by social worker health services to answer any questions and ensure safety upon discharge. Mental status exam: General Appearance: Patient appears to be short in stature, overweight, stated age is alert, pleasant, and cooperative. Patient is in no acute distress and has fair hygiene and grooming Behavior: Patient is calmly seated without any agitated behavior. Cooperative and directable. Speech: Patient's speech is fluent and nonpressured. Less hyperverbal. Mood/Affect: Patient reports their mood is "better", affect is congruent and eu thymic. Suicidality/Homicidality: Patient denies having any suicidal or homicidal ideation intent or plan. Perceptions: Patient denies any auditory or visual hallucinations. Though content/process: There is no evidence of any delusional thought content and thought process is linear and goal-directed. more future oriented Memory and concentration: AOX3, grossly intact for the purposes of this session. Can spell "WORLD" backwards correctly. Judgment and insight: Improved with guarded prognosis Impression: Bipolar disorder, severe, manic episode Plan: -Continue with discharge today as patient has improved and stabilized psychiatrically and is not currently an imminent threat to herself and/or others. -Continue medications: Risperdal 1 mg daily +2 mg daily at bedtime for mood stabilization/psychosis. Continue with Depakote 500 mg twice a day or mood stabilization. -Patient was counseled on the need for medication compliance and appropriate follow-up at mental health and also primary care for medical issues. Patient verbalized understanding and agreed. -Social work to arrange for and conduct family meeting to ensure safety upon discharge and answer any questions/concerns. Seasonal Driver spoke with patient's Amish over the phone at [phone] to answer any questions and concerns and claims that he will be helping patient with her medications and compliance. -Social work also to arrange for patients follow up appointments for psychiatric care along with follow up with primary care provider. -Patient counseled on abstaining from recreational drugs and marijuana and alcohol. Was informed/educated on the adverse effects on their physical and mental health. Patient verbally agreed and understood. -Patient was instructed to return to the hospital or seek immediate medical care if their psychiatric or medical symptoms do worsen or reoccur. Allergies Allergy/AdvReac Type Severity Reaction Status Date / Time influenza virus vaccine, Allergy Swelling Verified 01/24/20 15:00 specific Iodine and Iodide Containing Allergy Rash/Hives Verified 01/24/20 18:10 Produc aspirin AdvReac urinating Verified 01/24/20 15:00 blood codeine AdvReac Nausea Verified 01/24/20 15:00 Laboratory Results WBC 11.0 k/uL (3.8-10.6) H 01/24/20 15:15 RBC 4.70 m/uL (3.80-5.40) 01/24/20 15:15 Hgb 15.0 gm/dL (11.4-16.0) 01/24/20 15:15 Hct 44.9 % (34.0-46.0) 01/24/20 15:15 MCV 95.7 fL (80.0-100.0) 01/24/20 15:15 MCH 31.9 pg (25.0-35.0) 01/24/20 15:15 MCHC 33.4 g/dL (31.0-37.0) 01/24/20 15:15 RDW 12.1 % (11.5-15.5) 01/24/20 15:15 Plt Count 328 k/uL (150-450) 01/24/20 15:15 Neutrophils % 70 % 01/24/20 15:15 Lymphocytes % 18 % 01/24/20 15:15 Monocytes % 4 % 01/24/20 15:15 Eosinophils % 5 % 01/24/20 15:15 Basophils % 1 % 01/24/20 15:15 Neutrophils # 7.8 k/uL (1.3-7.7) H 01/24/20 15:15 Lymphocytes # 2.0 k/uL (1.0-4.8) 01/24/20 15:15 Monocytes # 0.5 k/uL (0-1.0) 01/24/20 15:15 Eosinophils # 0.5 k/uL (0-0.7) 01/24/20 15:15 Basophils # 0.1 k/uL (0-0.2) 01/24/20 15:15 PT 9.4 sec (9.0-12.0) 01/24/20 15:15 INR 0.9 (<1.2) 01/24/20 15:15 APTT 24.7 sec (22.0-30.0) 01/24/20 15:15 D-Dimer 0.85 mg/L FEU (<0.60) H 01/24/20 15:15 Sodium 137 mmol/L (137-145) 01/24/20 15:15 Potassium 4.1 mmol/L (3.5-5.1) 01/24/20 15:15 Chloride 102 mmol/L (98-107) 01/24/20 15:15 Carbon Dioxide 27 mmol/L (22-30) 01/24/20 15:15 Anion Gap 8 mmol/L 01/24/20 15:15 BUN 21 mg/dL (7-17) H 01/24/20 15:15 Creatinine 0.69 mg/dL (0.52-1.04) 01/24/20 15:15 Est GFR (CKD-EPI)AfAm >90 (>60 ml/min/1.73 sqM) 01/24/20 15:15 Est GFR (CKD-EPI)NonAf 89 (>60 ml/min/1.73 sqM) 01/24/20 15:15 Glucose 102 mg/dL (74-99) H 01/24/20 15:[address] Glu mg/dL 100 01/25/20 06:36 Hemoglobin A1c 5.1 % (4.0-6.0) 01/25/20 06:36 Plasma Lactic Acid David 0.8 mmol/L (0.7-2.0) 01/24/20 15:15 Calcium 9.7 mg/dL (8.4-10.2) 01/24/20 15:15 Magnesium 2.4 mg/dL (1.6-2.3) H 01/24/20 15:15 Total Bilirubin 0.6 mg/dL (0.2-1.3) 01/24/20 15:15 AST 27 U/L (14-36) 01/24/20 15:15 ALT 28 U/L (4-34) 01/24/20 15:15 Alkaline Phosphatase 69 U/L (38-126) 01/24/20 15:15 Troponin I <0.012 ng/mL (0.000-0.034) 01/24/20 15:15 NT-Pro-B Natriuret Pep 120 pg/mL 01/24/20 15:15 Total Protein 7.4 g/dL (6.3-8.2) 01/24/20 15:15 Albumin 4.6 g/dL (3.5-5.0) 01/24/20 15:15 Triglycerides 56 mg/dL (<150) 01/25/20 06:36 Cholesterol 230 mg/dL (<200) H 01/25/20 06:36 LDL Cholesterol, Calc 99 mg/dL (0-99) 01/25/20 06:36 HDL Cholesterol 120 mg/dL (40-60) H 01/25/20 06:36 TSH 0.521 mIU/L (0.465-4.680) 01/25/20 06:36 Urine Opiates Screen Detected (NotDetected) H 01/24/20 15:15 Ur Oxycodone Screen Not Detected (NotDetected) 01/24/20 15:15 Urine Methadone Screen Not Detected (NotDetected) 01/24/20 15:15 Ur Propoxyphene Screen Not Detected (NotDetected) 01/24/20 15:15 Ur Barbiturates Screen Not Detected (NotDetected) 01/24/20 15:15 Valproic Acid 91.9 ug/mL 01/29/20 06:45 U Tricyclic Antidepress Not Detected (NotDetected) 01/24/20 15:15 Ur Phencyclidine Scrn Not Detected (NotDetected) 01/24/20 15:15 Ur Amphetamines Screen Not Detected (NotDetected) 01/24/20 15:15 U Methamphetamines Scrn Not Detected (NotDetected) 01/24/20 15:15 U Benzodiazepines Scrn Not Detected (NotDetected) 01/24/20 15:15 Urine Cocaine Screen Not Detected (NotDetected) 01/24/20 15:15 U Marijuana (THC) Screen Not Detected (NotDetected) 01/24/20 15:15 Coronavirus (PCR) Not Detected (Not Detectd) 01/24/20 20:06 Vital Signs Temp 98.1 F 01/29/20 05:19 Pulse 82 01/29/20 06:15 Resp 16 01/29/20 06:15 BP 157/80 01/29/20 06:15 Pulse Ox 94 L 01/29/20 06:15 Patient Condition at Discharge: Stable Plan - Discharge Summary New Discharge Prescriptions: No Action Lisinopril 40 mg PO DAILY Hydrocortisone Oint [Hydrocortisone 2.5% Oint] 1 applic TOPICAL DAILY PRN PRN Reason: Rash Diltiazem HCl 120 mg PO DAILY Furosemide [Lasix] 40 mg PO DAILY Discharge Medication List Diltiazem HCl 120 mg PO DAILY 01/24/20 [History] Furosemide [Lasix] 40 mg PO DAILY 01/24/20 [History] Hydrocortisone Oint [Hydrocortisone 2.5% Oint] 1 applic TOPICAL DAILY PRN 01/24/20 [History] Lisinopril 40 mg PO DAILY 01/24/20 [History] Follow up Appointment(s)/Referral(s): None,Stated [Primary Care Provider] - 1-2 days Terence Lopez MD [STAFF PHYSICIAN] - 2 Weeks Activity/Diet/Wound Care/Special Instructions: Activity and diet as tolerated. Avoid the use of street drugs and alcohol. Take all medications as prescribed. When you are in need of refills on your medications please contact your medical provider and/or outpatient psychiatrist to have this done. Please go to scheduled outpatient appointment for aftercare treatment. If symptoms return or become worse, call the crisis line at and/or go to the nearest emergency room for evaluation. Follow with Dr. Goldman in 3-5 days after discharge regarding chronic cough.
== END 2020-01-29 13:59 | disposition home or self-care (01) | DRG 885 ==
LOC: EC 13:38 → 3MHU 01-25 00:17
PROVIDERS: ADMIT Psychiatry & Neurology Psychiatry; ATTEND Psychiatry & Neurology Psychiatry
DX: F31.2 Bipolar disorder, current episode manic severe with psychotic features (principal); J45.901 Unspecified asthma with (acute) exacerbation; R45.850 Homicidal ideations; T50.916A Underdosing of multiple unspecified drugs, medicaments and biological substances, initial encounter; E78.5 Hyperlipidemia, unspecified; I10 Essential (primary) hypertension; J44.9 Chronic obstructive pulmonary disease, unspecified; K59.00 Constipation, unspecified; R60.0 Localized edema; R00.1 Bradycardia, unspecified; R79.89 Other specified abnormal findings of blood chemistry; Z20.828 Contact with and (suspected) exposure to other viral communicable diseases; Z91.128 Patient's intentional underdosing of medication regimen for other reason; Z79.899 Other long term (current) drug therapy; Z87.891 Personal history of nicotine dependence; Z90.710 Acquired absence of both cervix and uterus; Z88.5 Allergy status to narcotic agent; Z88.7 Allergy status to serum and vaccine; Z91.041 Radiographic dye allergy status
CPT/HCPCS: 36415; 71045; 71275; 80053; 80061; 80164; 80306; 82075; 83036; 83605; 83735; 83880; 84443; 84484; 85025; 85379; 85610; 85730; 87635; 93005; 94640; 96374; 96375; 99285

== ENCOUNTER 2020-07-28 11:49 | Inpatient (IN) | payer MEDICARE, BC ==
--- NOTE | 2020-07-28 13:11 | ED ---
General Adult HPI - General Chief complaint: Psychiatric Symptoms Stated complaint: EPS eval Time Seen by Provider: 07/28/20 12:57 Source: patient, RN notes reviewed, old records reviewed Mode of arrival: ambulatory Limitations: no limitations - History of Present Illness Initial comments: 70-year-old female presenting for mental health evaluation. History of bipolar depression. She has been petitioned by her counselor at [facility]. Patient is hyperverbal, tangential thought process, she is unable to complete a detailed history of exactly why she is here. She is accompanied by her . She has no physical complaints. - Related Data Home Medications Medication Instructions Recorded Confirmed Hydrocortisone Oint 1 applic TOPICAL DAILY PRN 01/24/20 01/24/20 [Hydrocortisone 2.5% Oint] Previous Rx's Medication Instructions Recorded Albuterol Nebulized [Ventolin 2.5 mg INHALATION RT-QID #1 ml 01/29/20 Nebulized] Budesonide/Formoterol Fumarate 2 puff INHALATION BID #2 inhaler 01/29/20 [Symbicort 80-4.5 Mcg Inhaler] Diltiazem Cd [Cardizem CD] 120 mg PO DAILY 30 Days cap.er.24h 01/29/20 Divalproex ER [Depakote ER] 500 mg PO BID 30 Days tab.er.24h 01/29/20 Furosemide [Lasix] 40 mg PO DAILY 30 Days tab 01/29/20 Sennosides-Docusate Sodium 1 each PO BID 30 Days tab 01/29/20 [Senokot-S] lisinopriL 40 mg PO DAILY 30 Days tab 01/29/20 risperiDONE [RisperDAL] 1 mg PO DAILY 30 Days tab 01/29/20 risperiDONE [RisperDAL] 2 mg PO HS 30 Days tab 01/29/20 Allergies Allergy/AdvReac Type Severity Reaction Status Date / Time influenza virus vaccine, Allergy Swelling Verified 07/28/20 17:29 specific Iodine and Iodide Containing Allergy Rash/Hives Verified 07/28/20 17:29 Produc aspirin AdvReac urinating Verified 07/28/20 17:29 blood codeine AdvReac Nausea Verified 07/28/20 17:29 Review of Systems ROS Statement: Those systems with pertinent positive or pertinent negative responses have been documented in the HPI. ROS Other: All systems not noted in ROS Statement are negative. Past Medical History Past Medical History: COPD, Hypertension History of Any Multi-Drug Resistant Organisms: None Reported Past Surgical History: Hysterectomy, Orthopedic Surgery Past Psychological History: Bipolar Smoking Status: Never smoker Past Alcohol Use History: Occasional Past Drug Use History: None Reported General Exam Limitations: no limitations General appearance: alert, in no apparent distress Head exam: Present: atraumatic, normocephalic Eye exam: Present: normal appearance, PERRL ENT exam: Present: normal exam Neck exam: Present: normal inspection. Absent: tenderness, meningismus Respiratory exam: Present: normal lung sounds bilaterally. Absent: respiratory distress, wheezes Cardiovascular Exam: Present: regular rate, normal rhythm GI/Abdominal exam: Present: soft. Absent: distended, tenderness, guarding Extremities exam: Present: normal inspection, normal capillary refill. Absent: pedal edema Back exam: Present: normal inspection Neurological exam: Present: alert, oriented X3, CN II-XII intact. Absent: motor sensory deficit Psychiatric exam: Present: anxious, other (manic) Skin exam: Present: warm, dry, intact. Absent: cyanosis, diaphoretic Course Vital Signs 07/28/20 12:13 Temperature 98.9 F Pulse Rate 58 L Respiratory 20 Rate Blood Pressure 193/88 O2 Sat by Pulse 95 Oximetry - Reevaluation(s) Reevaluation #1: 07/28/20 17:37 patient has been evaluated by EPS, and will be admitted to this institution for further psychiatric evaluation and treatment. I did complete a clinical certification for this patient. Medical Decision Making - Lab Data Lab Results 07/28/20 Range/Units 12:29 Urine Color Light Yellow Urine Appearance Clear (Clear) Urine pH 8.0 (5.0-8.0) Ur Specific [place] 1.007 (1.001-1.035) Urine Protein Negative (Negative) Urine Glucose (UA) Negative (Negative) Urine Ketones Negative (Negative) Urine Blood Negative (Negative) Urine Nitrite Negative (Negative) Urine Bilirubin Negative (Negative) Urine Urobilinogen <2.0 (<2.0) mg/dL Ur Leukocyte Esterase Negative (Negative) Urine Opiates Screen Not Detected (NotDetected) Ur Oxycodone Screen Not Detected (NotDetected) Urine Methadone Screen Not Detected (NotDetected) Ur Propoxyphene Screen Not Detected (NotDetected) Ur Barbiturates Screen Not Detected (NotDetected) U Tricyclic Antidepress Not Detected (NotDetected) Ur Phencyclidine Scrn Not Detected (NotDetected) Ur Amphetamines Screen Not Detected (NotDetected) U Methamphetamines Scrn Not Detected (NotDetected) U Benzodiazepines Scrn Detected H (NotDetected) Urine Cocaine Screen Not Detected (NotDetected) U Marijuana (THC) Screen Not Detected (NotDetected) Disposition Clinical Impression: Bipolar disorder with severe onelia Disposition: ADMITTED IP TO THIS [facility] Condition: Stable Is patient prescribed a controlled substance at d/c from ED?: No Referrals: Jonatan Ferrera MD [Primary Care Provider] - 1-2 days Decision to Admit Reason: Admit from EC Decision Date: 07/28/20 Decision Time: 17:38
[2020-07-28 13:21] LABS: Appearance,Urine Clear (Clear); Bilirubin,Urine Negative (Negative); Blood,Urine Negative (Negative); Color,Urine Light Yellow; Glucose,Urine (UA) Negative (Negative); Ketones,Urine Negative (Negative); Leukocyte Esterase,Urine Negative (Negative); Nitrite,Urine Negative (Negative); Protein,Urine Negative (Negative); Specific Gravity,Urine 1.007 (1.001-1.035); Urobilinogen,Urine <2.0 mg/dL (<2.0)
[2020-07-28 13:52] LABS: Amphetamine Screen,Urine Not Detected (NotDetected); Barbiturate Screen,Urine Not Detected (NotDetected); Benzodiazepines Screen,Urine Detected (NotDetected); Cocaine Screen,Urine Not Detected (NotDetected); Methadone Screen, Urine Not Detected (NotDetected); Opiate Screen,Urine Not Detected (NotDetected); Oxycodone Screen, Urine Not Detected (NotDetected); Phencyclidine Screen,Urine Not Detected (NotDetected); Tricyclic Antidepressant,Urine Not Detected (NotDetected); Urn Cannabinoid Scrn Not Detected (NotDetected)
[2020-07-28] MEDS ORDERED: TRIAMCINOLONE ACET 0.1% OINTMENT 15 GM TUBE TOPICAL PRN (18:06)
[2020-07-28] MEDS ORDERED: hydrOXYzine HCL 25 MG TAB PO PRN (18:06)
[2020-07-28] MEDS ORDERED: ACETAMINOPHEN TAB 325 MG TAB PO PRN (18:06)
[2020-07-28] MEDS ORDERED: OLANZapine 10 MG VIAL IM PRN (18:14)
[2020-07-28] MEDS ORDERED: OLANZapine 5 MG TAB PO PRN (18:14)
[2020-07-28] MEDS ORDERED: cloNIDine 0.1 MG/24HR PATCH TRANSDERM SCH (19:00)
[2020-07-28] MEDS: ALBUTEROL NEBULIZED 2.5 MG/3 ML INHALATION SCH (20:32)
[2020-07-28] MEDS: AMOXIC-POT CLAV 875-125MG 1 EACH TAB PO SCH (20:33)
[2020-07-28] MEDS: METOPROLOL TARTRATE 50 MG TAB PO SCH (20:33)
[2020-07-28] MEDS: MONTELUKAST 10 MG TAB PO SCH (20:33)
[2020-07-28] MEDS ORDERED: QUEtiapine 100 MG TAB PO SCH (21:00)
--- NOTE | 2020-07-28 22:56 | P.CONS ---
History of Present Illness - Reason for Consult Consult date: 07/28/20 - History of Present Illness Patient is a 70-year-old female with a PMH of bipolar disorder, hypertension, and COPD who was brought to the emergency room by her for bizarre thought processes. The patient was admitted to the mental health unit for suspected onelia, where she was seen and evaluated. The patient had flight of ideas during the interview with very tangential thought process and thereby history was difficult to discern. She explained in detail her interactions with her friends and her prior to her arrival in the emergency room. She however denied any physical complaints. She reported a mild cough over the past few days for which she has been taking oral steroids and was prescribed a course of antibiotics. She denied chest pain, shortness of breath, fever, chills. Denied abdominal pain, nausea, vomiting. Review of Systems Pertinent positives and negatives as discussed in HPI, a complete review of systems was performed and all other systems are negative. Past Medical History Past Medical History: COPD, Hypertension History of Any Multi-Drug Resistant Organisms: None Reported Past Surgical History: Hysterectomy, Orthopedic Surgery Past Psychological History: Bipolar Smoking Status: Never smoker Past Alcohol Use History: Occasional Past Drug Use History: None Reported Medications and Allergies Home Medications Medication Instructions Recorded Confirmed Type Hydrocortisone Oint 1 applic TOPICAL DAILY PRN 01/24/20 07/28/20 History [Hydrocortisone 2.5% Oint] Albuterol Nebulized [Ventolin 2.5 mg INHALATION RT-QID #1 ml 01/29/20 07/28/20 Rx Nebulized] lisinopriL 40 mg PO DAILY 30 Days tab 01/29/20 07/28/20 Rx Acetaminophen Tab [Tylenol] 650 mg PO Q4H PRN 07/28/20 07/28/20 History Albuterol Inhaler [Ventolin Hfa 1 - 2 puff INHALATION RT-QID PRN 07/28/20 07/28/20 History Inhaler] Amoxic-Pot Clav 875-125Mg 1 tab PO BID 07/28/20 07/28/20 History [Augmentin 875-125] Calcium 600mg/Vitamin D3(Unknown) 1 tab PO DAILY 07/28/20 07/28/20 History Calcium/Magnesium/Zinc 1 tab PO DAILY 07/28/20 07/28/20 History [Zzjzzov-Ufbctwutk-Zjtu Tablet] Cetirizine HCl 10 mg PO DAILY 07/28/20 07/28/20 History Furosemide [Lasix] 40 mg PO DIRECTED 07/28/20 07/28/20 History Metoprolol Tartrate [Lopressor] 50 mg PO BID 07/28/20 07/28/20 History Montelukast [Singulair] 10 mg PO HS 07/28/20 07/28/20 History Nasal [place](Unknown) 1 spray EA NOSTRIL DAILY PRN 07/28/20 07/28/20 History [place] 3-6-9 1200mg 1 cap PO DAILY 07/28/20 07/28/20 History QUEtiapine [SEROquel] 200 mg PO HS 07/28/20 07/28/20 History Vitamin B Complex 1 cap PO DAILY 07/28/20 07/28/20 History Vitamin B-12(Unknown Dose) 1 tab PO DAILY 07/28/20 07/28/20 History cloNIDine 0.1 MG/24HR PATCH 1 patch TRANSDERM Q7D 07/28/20 07/28/20 History [Catapres-TTS] diazePAM [Valium] 5 mg PO HS PRN 07/28/20 07/28/20 History hydrOXYzine HCL [Atarax] 50 mg PO DIRECTED PRN 07/28/20 07/28/20 History predniSONE [Deltasone] 60 mg PO DAILY 07/28/20 07/28/20 History Allergies Allergy/AdvReac Type Severity Reaction Status Date / Time influenza virus vaccine, Allergy Swelling Verified 07/28/20 17:29 specific Iodine and Iodide Containing Allergy Rash/Hives Verified 07/28/20 17:29 Produc aspirin AdvReac urinating Verified 07/28/20 17:29 blood codeine AdvReac Nausea Verified 07/28/20 17:29 Physical Exam Vitals: Vital Signs Temp Pulse Pulse Resp BP BP Pulse Ox 07/28/20 20:35 176/91 07/28/20 18:20 97.9 F 62 16 149/82 95 07/28/20 12:13 98.9 F 58 L 20 193/88 95 Intake and Output 07/28/20 07/28/20 07/28/20 06:59 14:59 22:59 Other: Weight 78.018 kg 78.8 kg General: non toxic, no distress, appears at stated age, obese Derm: no unusual rashes/lesions no unusual ecchymoses, warm, dry Head: atraumatic, normocephalic, symmetric Eyes: EOMI, no lid lag, anicteric sclera, pupils equal round reactive to light ENT: Nose and ears atraumatic, no thrush, no pharyngeal erythema Neck: No thyromegaly, no cervical lymphadenopathy, trachea midline, supple Mouth: no lip lesion, mucus membranes moist Cardiovascular: S1S2 reg, no murmur, positive posterior tibial pulse bilateral, no edema, capillary refill less than 2 seconds Lungs: CTA bilateral, no rhonchi, no rales , no accessory muscle use Abdominal: soft, nontender to palpation, no guarding, no appreciable organomegaly, normal bowel sounds Ext: no gross muscle atrophy, muscle strength 5 out of 5 in all 4 extremities grossly, no contractures, Neuro: CN II-XI grossly intact, light touch intact all 4 extremities, finger to nose within normal limits, Psych: Alert, oriented, flat of ideas, tangential thought process Results Labs: Abnormal Lab Results - Last 24 Hours (Table) 07/28/20 Range/Units 12:29 U Benzodiazepines Scrn Detected H (NotDetected) Assessment and Plan Plan: Bronchitis -Complete course of Augmentin which was prescribed on 07/23 for 10 days -Continue for an additional 5 days -Continue with home inhaler therapies -Complete a 5 day course of oral prednisone Hypertension -Continue with home medications Manic episode -As per psychiatry Thank you for allowing us to participate in the care of this patient. We will follow peripherally. Do not hesitate to contact us with questions. Someone can be reached from the [facility] hospitalist group at all hours of the day at [phone].
[2020-07-29] MEDS ORDERED: VITAMIN B12 PO SCH (09:00)
[2020-07-29 09:24] LABS: Basophils # (A) 0.1 k/uL (0-0.2); Basophils % (A) 1 %; Eosinophils # (A) 0.3 k/uL (0-0.7); Eosinophils % (A) 2 %; HCT 47.7 % (34.0-46.0); HGB 14.9 gm/dL (11.4-16.0); Lymphocytes # (A) 3.2 k/uL (1.0-4.8); Lymphocytes % (A) 21 %; MCH 30.2 pg (25.0-35.0); MCHC 31.3 g/dL (31.0-37.0); MCV 96.7 fL (80.0-100.0); Mean Platelet Volume 7.4; Monocytes % (A) 7 %; Neutrophils # (A) 10.3 k/uL (1.3-7.7); Neutrophils % (A) 69 %; Platelet Count 258 k/uL (150-450); RBC 4.93 m/uL (3.80-5.40); RDW 13.5 % (11.5-15.5); WBC 15.1 k/uL (3.8-10.6)
[2020-07-29 09:35] LABS: Potassium 4.3 mmol/L (3.5-5.1)
[2020-07-29 09:36] LABS: Albumin 4.5 g/dL (3.5-5.0); Calcium 9.3 mg/dL (8.4-10.2); Total Protein 7.1 g/dL (6.3-8.2)
[2020-07-29] MEDS: lisinopriL 20 MG TAB PO SCH (09:41)
[2020-07-29] MEDS: AMOXIC-POT CLAV 875-125MG 1 EACH TAB PO SCH ×2 (09:41→20:57)
[2020-07-29] MEDS: CALCIUM CARB-VIT D 500MG-200UN 1 EACH TAB PO SCH (09:42)
[2020-07-29] MEDS: LORATADINE 10 MG TAB PO SCH (09:42)
[2020-07-29] MEDS: METOPROLOL TARTRATE 50 MG TAB PO SCH ×2 (09:42→20:57)
[2020-07-29] MEDS: NON FORMULARY DRUG (Vitamin B Complex [Vitamin B Complex] 1 EACH Capsule) PO SCH (10:21)
[2020-07-29] MEDS: OMEGA PO SCH (10:28)
[2020-07-29] MEDS: NON FORMULARY DRUG (Calcium/Magnesium/Zinc [Calcium-Magnesium-Zinc Tablet] 1 EACH Tablet) PO SCH (10:28)
[2020-07-29] MEDS: ALBUTEROL NEBULIZED 2.5 MG/3 ML INHALATION SCH ×4 (11:22→20:55)
--- NOTE | 2020-07-29 11:48 | P.HP ---
Psychiatric H&P - . H&P Date: 07/29/20 History & Physical: Allergies Allergy/AdvReac Type Severity Reaction Status Date / Time influenza virus vaccine, Allergy Swelling Verified 07/29/20 02:36 specific Iodine and Iodide Containing Allergy Rash/Hives Verified 07/29/20 02:36 Produc aspirin AdvReac urinating Verified 07/29/20 02:36 blood codeine AdvReac Nausea Verified 07/29/20 02:36 Vital Signs Temp 97.9 F 07/28/20 18:20 Pulse 62 07/28/20 18:20 Resp 16 07/28/20 18:20 BP 176/91 07/28/20 20:35 Pulse Ox 95 07/28/20 18:20 Intake & Output 07/28/20 07/29/20 07/29/20 18:59 06:59 18:59 Weight 78.8 kg Laboratory Last Values WBC 15.1 k/uL (3.8-10.6) H 07/29/20 07:59 RBC 4.93 m/uL (3.80-5.40) 07/29/20 07:59 Hgb 14.9 gm/dL (11.4-16.0) 07/29/20 07:59 Hct 47.7 % (34.0-46.0) H 07/29/20 07:59 MCV 96.7 fL (80.0-100.0) 07/29/20 07:59 MCH 30.2 pg (25.0-35.0) 07/29/20 07:59 MCHC 31.3 g/dL (31.0-37.0) 07/29/20 07:59 RDW 13.5 % (11.5-15.5) 07/29/20 07:59 Plt Count 258 k/uL (150-450) 07/29/20 07:59 MPV 7.4 07/29/20 07:59 Neutrophils % 69 % 07/29/20 07:59 Lymphocytes % 21 % 07/29/20 07:59 Monocytes % 7 % 07/29/20 07:59 Eosinophils % 2 % 07/29/20 07:59 Basophils % 1 % 07/29/20 07:59 Neutrophils # 10.3 k/uL (1.3-7.7) H 07/29/20 07:59 Lymphocytes # 3.2 k/uL (1.0-4.8) 07/29/20 07:59 Monocytes # 1.0 k/uL (0-1.0) 07/29/20 07:59 Eosinophils # 0.3 k/uL (0-0.7) 07/29/20 07:59 Basophils # 0.1 k/uL (0-0.2) 07/29/20 07:59 Sodium 136 mmol/L (137-145) L 07/29/20 07:59 Potassium 4.3 mmol/L (3.5-5.1) 07/29/20 07:59 Chloride 99 mmol/L (98-107) 07/29/20 07:59 Carbon Dioxide 29 mmol/L (22-30) 07/29/20 07:59 Anion Gap 8 mmol/L 07/29/20 07:59 BUN 23 mg/dL (7-17) H 07/29/20 07:59 Creatinine 0.90 mg/dL (0.52-1.04) 07/29/20 07:59 Est GFR (CKD-EPI)AfAm 75 (>60 ml/min/1.73 sqM) 07/29/20 07:59 Est GFR (CKD-EPI)NonAf 65 (>60 ml/min/1.73 sqM) 07/29/20 07:59 Glucose 98 mg/dL (74-99) 07/29/20 07:59 Calcium 9.3 mg/dL (8.4-10.2) 07/29/20 07:59 Total Bilirubin 1.0 mg/dL (0.2-1.3) 07/29/20 07:59 AST 22 U/L (14-36) 07/29/20 07:59 ALT 29 U/L (4-34) 07/29/20 07:59 Alkaline Phosphatase 61 U/L (38-126) 07/29/20 07:59 Total Protein 7.1 g/dL (6.3-8.2) 07/29/20 07:59 Albumin 4.5 g/dL (3.5-5.0) 07/29/20 07:59 Triglycerides 167 mg/dL (<150) H 07/29/20 07:59 Cholesterol 217 mg/dL (<200) H 07/29/20 07:59 LDL Cholesterol, Calc 74 mg/dL (0-99) 07/29/20 07:59 HDL Cholesterol 110 mg/dL (40-60) H 07/29/20 07:59 TSH 2.550 mIU/L (0.465-4.680) 07/29/20 07:59 Urine Color Light Yellow 07/28/20 12:29 Urine Appearance Clear (Clear) 07/28/20 12:29 Urine pH 8.0 (5.0-8.0) 07/28/20 12:29 Ur Specific [place] 1.007 (1.001-1.035) 07/28/20 12:29 Urine Protein Negative (Negative) 07/28/20 12:29 Urine Glucose (UA) Negative (Negative) 07/28/20 12:29 Urine Ketones Negative (Negative) 07/28/20 12: Urine Blood Negative (Negative) 07/28/20 12: Urine Nitrite Negative (Negative) 07/28/20 12:29 Urine Bilirubin Negative (Negative) 07/28/20 12:29 Urine Urobilinogen <2.0 mg/dL (<2.0) 07/28/20 12:29 Ur Leukocyte Esterase Negative (Negative) 07/28/20 12:29 Urine Opiates Screen Not Detected (NotDetected) 07/28/20 12:29 Ur Oxycodone Screen Not Detected (NotDetected) 07/28/20 12:29 Urine Methadone Screen Not Detected (NotDetected) 07/28/20 12:29 Ur Propoxyphene Screen Not Detected (NotDetected) 07/28/20 12:29 Ur Barbiturates Screen Not Detected (NotDetected) 07/28/20 12:29 U Tricyclic Antidepress Not Detected (NotDetected) 07/28/20 12:29 Ur Phencyclidine Scrn Not Detected (NotDetected) 07/28/20 12:29 Ur Amphetamines Screen Not Detected (NotDetected) 07/28/20 12:29 U Methamphetamines Scrn Not Detected (NotDetected) 07/28/20 12:29 U Benzodiazepines Scrn Detected (NotDetected) H 07/28/20 12:29 Urine Cocaine Screen Not Detected (NotDetected) 07/28/20 12:29 U Marijuana (THC) Screen Not Detected (NotDetected) 07/28/20 12:29 07/29/20 11:23 IDENTIFYING DATA: Patient is a 70-year-old female who currently lives with her in a house has 3 kids HPI: Patient presented to the hospital and was brought in by her for psychiatric evaluation. Patient has a history of bipolar disorder and was last admitted to the mental health unit in January 2020. Patient according to ER report came in on a petition filled out by a [facility] older adult social work specialist who stated the patient was hyperverbal, tangential, agitated and was laughing and not taking her m edications. Patient also stated that patient wanted to fly to [place] and was tearful about losing her father. Patient's UDS was positive for benzodiazepines. Patient apparently told nursing staff that her granddaughter was exposed to covid possibly at school and patient was placed in isolation/quarantine and currently awaiting covid test. Patient was seen inside her room today and was fairly intrusive with conventional underwriter and was difficult to redirect and interrupt. She was tangential, rambled had pressured speech and a flight of ideas. She spoke significantly about the covid pandemic and also abo ut her grandchildren. She also spoke significantly about [place] and a psychiatrist that she was being seen there for her bipolar. She also spoke about her . Patient was for the most part he logical. She had racing thoughts and a flight of ideas. She claims that she has poor sleep. Patient was responding to internal stimuli. Patient denies any suicidal or homicidal ideations intent or plan. At this time patient denies any auditory or visual hallucinations. Patient admits to using alcohol occasionally however states that she does not smoke cigarettes or did any other drugs. PAST PSYCHIATRIC HISTORY: Patient states that she has a history of bipolar disorder and apparently he follows up at [facility]. Patient's last psychiatric hospitalization was on the mental health unit in January 2020. Patient was previously on Risperdal and Depakote however claims that she has not been taking it at home. She denies any suicide attempts in the past PMH: COPD and hypertension and hyperlipidemia. ALLERGIES: as per EMR CHEMICAL DEPENDENCY HISTORY: as per HPI FAMILY PSYCHIATRIC/SUBSTANCE USE HISTORY: She states that her mother was schizophrenic. SOCIAL HISTORY: Patient was born and raised in [place] [facility]. Patient currently lives in [place] with her in a house. She states that she has 3 kids. MENTAL STATUS EXAM: General Appearance: Patient appears to be stated age is short in stature, alert, difficult to redirect and is intrusive. Patient appears to have poor hygiene and grooming. Behavior: Patient is seated at times and stands up and appears to be restless and intrusive. Speech: Patient's speech is pressured Mood/Affect: Patient reports their mood is good, affect is congruent Suicidality/Homicidality: Patient denies having any homicidal ideation intent or plan. Denies any suicidal ideations intent or plan Perceptions: Patient denies any visual hallucinations and denies any auditory hallucinations Though content/process: Rambles, illogical, tangential flight of ideas. Illogical at times Memory and concentration: AOX3, unable to fully assess as patient is poor attention span. Judgment and insight: poor STRENGTHS/WEAKNESSES: strength is that patient is resilient. Weakness is that patient has poor judgment and is impulsive INTELLECT: average IMPRESSIONS: Bipolar disorder, severe, currently in manic episode PLAN: -Patient is admitted under involuntary status to MHU for stabilization of psychiatric symptoms and safety. A second certification was completed and along with petition will be filed for court. -Medications : Due to noncompliance will likely need to transition patient on to a long-acting injection. Patient is agreeable to start Abilify 2.5 mg daily for mood stabilization/psychosis. Seroquel was previously ordered last night at 200 mg and will be decreased down to 100 mg and hopefully titrated down -Vistaril and Zyprexa PRN for agitation/aggression -awaiting covid test results, until then patient is to remain in quarantine and wear a face mask. -Patient was informed of the risks, benefits and side effects of the medication, however patient refused to sign her medications. -Internal Medicine consult to perform medical evaluation and physical. -NRT - not needed as patient does not smoke -SW on board for discharge planning. Encourage patient to participate in groups to work on coping skills. Will gather further collateral history from patient's .
[2020-07-29] MEDS: ARIPiprazole 5 MG TAB PO SCH (12:36)
[2020-07-29] MEDS: FUROSEMIDE 40 MG TAB PO SCH (16:39)
[2020-07-29] MEDS: MONTELUKAST 10 MG TAB PO SCH (20:57)
[2020-07-29] MEDS ORDERED: QUEtiapine 100 MG TAB PO SCH (21:00)
[2020-07-29 21:27] LABS: Hemoglobin A1C 5.7 % (4.0-6.0)
[2020-07-30] MEDS: AMOXIC-POT CLAV 875-125MG 1 EACH TAB PO SCH ×2 (09:19→20:23)
[2020-07-30] MEDS: ARIPiprazole 5 MG TAB PO SCH (09:20)
[2020-07-30] MEDS: CALCIUM CARB-VIT D 500MG-200UN 1 EACH TAB PO SCH (09:20)
[2020-07-30] MEDS: lisinopriL 20 MG TAB PO SCH (09:20)
[2020-07-30] MEDS: METOPROLOL TARTRATE 50 MG TAB PO SCH ×2 (09:21→20:23)
[2020-07-30] MEDS: FUROSEMIDE 40 MG TAB PO SCH ×2 (09:21→16:09)
[2020-07-30] MEDS: LORATADINE 10 MG TAB PO SCH (09:22)
[2020-07-30] MEDS: NON FORMULARY DRUG (Calcium/Magnesium/Zinc [Calcium-Magnesium-Zinc Tablet] 1 EACH Tablet) PO SCH (09:24)
[2020-07-30] MEDS: OMEGA PO SCH (09:24)
[2020-07-30] MEDS: NON FORMULARY DRUG (Vitamin B Complex [Vitamin B Complex] 1 EACH Capsule) PO SCH (09:24)
--- NOTE | 2020-07-30 09:48 | P.PN ---
Progress Note - Text Progress Note Date: 07/30/20 Interval History: Patient was seen wandering the hallways and was directable and agreeable to sp cleo with film writer in the office. Patient continues to ramble and was tangential/circumstantial in thought process. She continues to speak negatively of [facility] and was asking for her to switched to the [facility]. She also spoke of wanting to go into couples therapy with her but wouldnt explain why. She claims that she liked taking the abilify and stated that it was helping her thoughts calm. She continues to have flight of ideas and racing thoughts. She states her mood is "good" and denies any anxiety. She claims she was able to sleep better last night. At this time patient denies any suicidal or homical ideations, intent or plan. Patient denies any auditory, visual hallucinations. Patient denies any side effects from the medications and has been compliant with meds. Mental Status Exam: General Appearance: Patient appears to be stated age is short in stature, alert, difficult to redirect and is intrusive, improving mildly. Patient appears to have improving hygiene and grooming. Behavior: Patient is seated in the chair, no agitation or behavioral issues. Speech: Patient's speech is pressured, improving mildly Mood/Affect: Patient reports their mood is "ok", affect is congruent Suicidality/Homicidality: Patient denies having any homicidal ideation intent or plan. Denies any suicidal ideations intent or plan Perceptions: Patient denies any visual hallucinations and denies any auditory hallucinations Though content/process: Rambles, illogical, tangential flight of ideas, improving mildly. Memory and concentration: AOX3, unable to fully assess as patient is poor attention span. Judgment and insight: poor, improving mildly Assessment Bipolar disorder, severe, currently in manic episode Plan: -Patient continues to meet criteria for inpatient psychiatric admission for symptom stabilization and safety. Patient has [not] signed adult voluntary form and was placed in patient's chart. -Medications: Due to noncompliance will likely need to transition patient on to a long-acting injection. increased Abilify 5 mg daily for mood stabilization/psychosis. Seroquel decreased 50 mg for tonight. -When necessary vistaril and zyprexa for agitation/aggression. -COVID test negative. -NRT - not needed as patient does not smoke -SW on board for discharge planning. Encouraged the patient to participate in milieu.
[2020-07-30] MEDS: ALBUTEROL NEBULIZED 2.5 MG/3 ML INHALATION SCH ×3 (11:46→20:20)
[2020-07-30] MEDS: SENNOSIDES-DOCUSATE SODIUM 1 EACH TAB PO SCH ×2 (13:04→20:23)
[2020-07-30] MEDS: QUEtiapine 50 MG TAB PO SCH (20:21)
[2020-07-30] MEDS: MONTELUKAST 10 MG TAB PO SCH (20:23)
[2020-07-31] MEDS ORDERED: cloNIDine HCL 0.2 MG TAB PO STA (05:03)
[2020-07-31] MEDS ORDERED: cloNIDine 0.2 MG/24HR PATCH TRANSDERM SCH (05:15)
[2020-07-31] MEDS ORDERED: ARIPiprazole 5 MG TAB PO SCH (09:00)
[2020-07-31] MEDS: ALBUTEROL NEBULIZED 2.5 MG/3 ML INHALATION SCH ×4 (09:27→21:03)
[2020-07-31] MEDS: SENNOSIDES-DOCUSATE SODIUM 1 EACH TAB PO SCH ×2 (09:29→21:04)
[2020-07-31] MEDS: AMOXIC-POT CLAV 875-125MG 1 EACH TAB PO SCH ×2 (09:30→21:05)
[2020-07-31] MEDS: LORATADINE 10 MG TAB PO SCH (09:30)
[2020-07-31] MEDS: CALCIUM CARB-VIT D 500MG-200UN 1 EACH TAB PO SCH (09:30)
[2020-07-31] MEDS: lisinopriL 20 MG TAB PO SCH (09:30)
[2020-07-31] MEDS: METOPROLOL TARTRATE 50 MG TAB PO SCH ×2 (09:30→21:05)
[2020-07-31] MEDS: FUROSEMIDE 40 MG TAB PO SCH ×2 (09:30→16:55)
[2020-07-31] MEDS: NON FORMULARY DRUG (Calcium/Magnesium/Zinc [Calcium-Magnesium-Zinc Tablet] 1 EACH Tablet) PO SCH (09:42)
[2020-07-31] MEDS: OMEGA PO SCH (09:43)
[2020-07-31] MEDS: NON FORMULARY DRUG (Vitamin B Complex [Vitamin B Complex] 1 EACH Capsule) PO SCH (09:43)
--- NOTE | 2020-07-31 11:40 | P.PN ---
Progress Note - Text Progress Note Date: 07/31/20 Interval History: Patient was seen wandering the hallways speaking with another patient and was directable and agreeable to speak with race and sports book writer in the office. Patient continues to ramble and was tangential/circumstantial in thought process over this has been improving and patient appears to be mildly more directable today. She continues to speak of her medications and also was preoccupied with discharge. She states that she called her earlier in claims that she may be getting discharged today. Her insight and judgment have been mildly improving.he claims that she has been talking with other people on the unit and has been getting along with him. She also states that she is making an effort to go to group. He is to display racing thoughts and flight of ideas. She states her mood is "good" and denies any anxiety. She claims she was able to sleep better last night. At this time patient denies any suicidal or homical ideations, intent or plan. Patient denies any auditory, visual hallucinations. Patient denies any side effects from the medications and has been compliant with meds. Mental Status Exam: General Appearance: Patient appears to be stated age is short in stature, alert, difficult to redirect and is intrusive, improving mildly. Patient appears to have improving hygiene and grooming. Behavior: Patient is seated in the chair, no agitation or behavioral issues. Speech: Patient's speech is pressured, improving mildly Mood/Affect: Patient reports their mood is "good", affect is congruent Suicidality/Homicidality: Patient denies having any homicidal ideation intent or plan. Denies any suicidal ideations intent or plan Perceptions: Patient denies any visual hallucinations and denies any auditory hallucinations Though content/process: Rambles, illogical, tangential flight of ideas, improving mildly. Memory and concentration: AOX3, attention span has been improving. Judgment and insight: poor, improving mildly Assessment Bipolar disorder, severe, currently in manic episode Plan: -Patient continues to meet criteria for inpatient psychiatric admission for symptom stabilization and safety. Patient has [not] signed adult voluntary form and was placed in patient's chart. -Medications: Due to noncompliance will likely need to transition patient on to a long-acting injection. Continue with Abilify 5 mg daily for mood stabilization/psychosis for today and tomorrow and this will be increased to 7.5 mg on Monday. Seroquel 50 mg daily at bedtime for mood stabilization/insomnia. -When necessary vistaril and zyprexa for agitation/aggression. -COVID test negative. -NRT - not needed as patient does not smoke -SW on board for discharge planning. Encouraged the patient to participate in milieu. Likely discharge early next week.
[2020-07-31] MEDS: MONTELUKAST 10 MG TAB PO SCH (21:05)
[2020-07-31] MEDS: QUEtiapine 50 MG TAB PO SCH (21:05)
[2020-08-01] MEDS ORDERED: ARIPiprazole 5 MG TAB PO ONE (09:00)
[2020-08-01] MEDS: AMOXIC-POT CLAV 875-125MG 1 EACH TAB PO SCH ×2 (09:24→20:10)
[2020-08-01] MEDS: ALBUTEROL NEBULIZED 2.5 MG/3 ML INHALATION SCH ×4 (09:24→20:10)
[2020-08-01] MEDS: CALCIUM CARB-VIT D 500MG-200UN 1 EACH TAB PO SCH (09:24)
[2020-08-01] MEDS: LORATADINE 10 MG TAB PO SCH (09:25)
[2020-08-01] MEDS: NON FORMULARY DRUG (Vitamin B Complex [Vitamin B Complex] 1 EACH Capsule) PO SCH (09:25)
[2020-08-01] MEDS: OMEGA PO SCH (09:25)
[2020-08-01] MEDS: lisinopriL 20 MG TAB PO SCH (09:25)
[2020-08-01] MEDS: SENNOSIDES-DOCUSATE SODIUM 1 EACH TAB PO SCH ×2 (09:25→20:10)
[2020-08-01] MEDS: NON FORMULARY DRUG (Calcium/Magnesium/Zinc [Calcium-Magnesium-Zinc Tablet] 1 EACH Tablet) PO SCH (09:25)
[2020-08-01] MEDS: METOPROLOL TARTRATE 50 MG TAB PO SCH ×2 (09:26→20:10)
[2020-08-01] MEDS: FUROSEMIDE 40 MG TAB PO SCH ×2 (09:26→16:53)
--- NOTE | 2020-08-01 09:42 | P.PN ---
Progress Note - Text Progress Note Date: 08/01/20 Interval history: Patient was seen wandering the hallways and was directable and agreeable to speak with policy writer sales. Patient continues to display pressured speech, flight of ideas, and his very tangential in conversation. She appears to be redirectable albeit this is difficult at times. She continues to endorse mood lability and states that she is easily irritated especially in relation to her . She reports that the medications have been overstated the sedating. She reports that the Seroquel may be too high a dose. She also reports dry mouth and side effects of the medication. At this time, the patient is not endorsing any suicidal or homicidal ideation, intention, and/or plan. Mental status exam: General Appearance: Patient appears her stated age, is difficult to direct, but is otherwise cooperative. Patient is short in stature and fair hygiene and grooming. Behavior: Psychomotor activity is elevated. Patient has an intense stare. Speech: Patient's speech is pressured and tangential. Mood/Affect: Mood is okay, affect is expansive and intense Suicidality/Homicidality: Patient denies having any suicidal or homicidal ideation intent or plan. Perceptions: Patient denies any auditory or visual hallucinations. Though content/process: Flight of ideas, illogical, disorganized Memory and concentration: AOX3, grossly intact for the purposes of this session Judgment and insight: Poor Assessment/Plan: Continue with current diagnosis. Patient continues to meet criteria for inpatient psychiatric admission for symptom stabilization and safety.Patient will be maintained on current psychotropic medication regimen. Monitor for medication compliance and for any psychotropic medication side effects. Will continue to monitor ongoing response to treatment. Encouraged participation in milieu.
[2020-08-01] MEDS: ALBUTEROL HFA INHALER INHALATION PRN (09:43)
[2020-08-01] MEDS: MAG HYDROX/AL HYDROX/SIMETH 30 ML CUP PO PRN (12:22)
[2020-08-01] MEDS: MONTELUKAST 10 MG TAB PO SCH (20:10)
[2020-08-01] MEDS: QUEtiapine 50 MG TAB PO SCH (20:10)
[2020-08-02] MEDS: LORATADINE 10 MG TAB PO SCH (08:51)
[2020-08-02] MEDS: SENNOSIDES-DOCUSATE SODIUM 1 EACH TAB PO SCH ×2 (08:51→21:03)
[2020-08-02] MEDS: ALBUTEROL NEBULIZED 2.5 MG/3 ML INHALATION SCH ×4 (08:51→21:02)
[2020-08-02] MEDS: AMOXIC-POT CLAV 875-125MG 1 EACH TAB PO SCH ×2 (08:52→21:04)
[2020-08-02] MEDS: lisinopriL 20 MG TAB PO SCH (08:52)
[2020-08-02] MEDS: OMEGA PO SCH (08:52)
[2020-08-02] MEDS: ARIPiprazole 5 MG TAB PO SCH (08:52)
[2020-08-02] MEDS: FUROSEMIDE 40 MG TAB PO SCH ×2 (08:52→15:22)
[2020-08-02] MEDS: CALCIUM CARB-VIT D 500MG-200UN 1 EACH TAB PO SCH (08:52)
[2020-08-02] MEDS: NON FORMULARY DRUG (Calcium/Magnesium/Zinc [Calcium-Magnesium-Zinc Tablet] 1 EACH Tablet) PO SCH (08:52)
[2020-08-02] MEDS: METOPROLOL TARTRATE 50 MG TAB PO SCH ×2 (08:52→21:04)
[2020-08-02] MEDS: NON FORMULARY DRUG (Vitamin B Complex [Vitamin B Complex] 1 EACH Capsule) PO SCH (08:53)
--- NOTE | 2020-08-02 09:12 | P.PN ---
Progress Note - Text Progress Note Date: 08/02/20 Interval history: Patient was seen wandering the hallways and was directable and agreeable to speak with residential mortgage underwriter. Patient continues to display pressured speech, flight of ideas, and his very tangential in conversation. Patient stresses that she is being discharged tomorrow. She reports that she spoke with a vegetable trimmer yesterday and that she was going to be discharged to [facility]. She was informed that Dr. Dinh will see her tomorrow and will be the one to determine her discharge. She is not reporting any suicidal or homicidal ideation, intention, and/or plan. She is not reporting any auditory or visual hallucinations. She denies any paranoia or other delusions at this time. She is much more redirectable today. Mental status exam: General Appearance: Patient appears her stated age, is difficult to direct, but is otherwise cooperative. Patient is short in stature and fair hygiene and grooming. Behavior: Psychomotor activity is elevated. Eye contact is fair. Speech: Patient's speech is pressured but less tangential today. She is more interruptible. Mood/Affect: Mood is okay, affect is expansive and intense Suicidality/Homicidality: Patient denies having any suicidal or homicidal ideation intent or plan. Perceptions: Patient denies any auditory or visual hallucinations. Though content/process: Flight of ideas, but linear and logical today. Memory and concentration: AOX3, grossly intact for the purposes of this session Judgment and insight: Poor Assessment/Plan: Continue with current diagnosis. Patient continues to meet criteria for inpatient psychiatric admission for symptom stabilization and safety.Patient will be maintained on current psychotropic medication regimen. Monitor for medication compliance and for any psychotropic medication side effects. Will continue to monitor ongoing response to treatment. Encouraged participation in milieu.
[2020-08-02] MEDS: MAG HYDROX/AL HYDROX/SIMETH 30 ML CUP PO PRN (10:04)
[2020-08-02] MEDS: ALBUTEROL HFA INHALER INHALATION PRN (21:03)
[2020-08-02] MEDS: MONTELUKAST 10 MG TAB PO SCH (21:04)
[2020-08-02] MEDS: QUEtiapine 50 MG TAB PO SCH (21:04)
[2020-08-03] MEDS: ARIPiprazole 5 MG TAB PO SCH (09:09)
[2020-08-03] MEDS: CALCIUM CARB-VIT D 500MG-200UN 1 EACH TAB PO SCH (09:10)
[2020-08-03] MEDS: SENNOSIDES-DOCUSATE SODIUM 1 EACH TAB PO SCH ×2 (09:10→21:21)
[2020-08-03] MEDS: METOPROLOL TARTRATE 50 MG TAB PO SCH ×2 (09:11→21:21)
[2020-08-03] MEDS: LORATADINE 10 MG TAB PO SCH (09:11)
[2020-08-03] MEDS: lisinopriL 20 MG TAB PO SCH (09:11)
[2020-08-03] MEDS: FUROSEMIDE 40 MG TAB PO SCH ×2 (09:11→16:19)
[2020-08-03] MEDS: NON FORMULARY DRUG (Vitamin B Complex [Vitamin B Complex] 1 EACH Capsule) PO SCH (09:12)
[2020-08-03] MEDS: OMEGA PO SCH (09:13)
[2020-08-03] MEDS: NON FORMULARY DRUG (Calcium/Magnesium/Zinc [Calcium-Magnesium-Zinc Tablet] 1 EACH Tablet) PO SCH (09:13)
--- NOTE | 2020-08-03 09:37 | P.PN ---
Progress Note - Text Progress Note Date: 08/03/20 Interval History: Patient was seen wandering the hallways speaking with other patients on the unit and was directable and agreeable to speak with commercial insurance underwriter in the office. Patient continues to ramble and was tangential/circumstantial in thought process. 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 She states that she is feeling better overall. She continues to claim that she has been going to take her medications and was agreeable to eventually take the injection to ensure compliance. He states that she has been talking her over the phone every day. Her insight and judgment have been mildly improving. he claims that she has been talking with other people on the unit and has been getting along with him. She claims that she has been going to groups. She states her mood is "good" and denies any anxiety. She claims she was able to sleep better last night. At this time patient denies any suicidal or homical ideations, intent or plan. Patient denies any auditory, visual hallucinations. Patient denies any side effects from the medications and has been compliant with meds. Mental Status Exam: General Appearance: Patient appears to be stated age is short in stature, alert, difficult to redirect, improving mildly. Patient appears to have improving hygiene and grooming. Behavior: Patient is seated in the chair, no agitation or behavioral issues. Speech: Patient's speech is rapid, improving mildly, rambles significantly. Mood/Affect: Patient reports their mood is "good", affect is congruent Suicidality/Homicidality: Patient denies having any homicidal ideation intent or plan. Denies any suicidal ideations intent or plan Perceptions: Patient denies any visual hallucinations and denies any auditory hallucinations Though content/process: Rambles, more goal oriented. Last tangential/c ircumstantial. Focused on discharge. Memory and concentration: AOX3, attention span has been improving. Judgment and insight: poor, improving mildly Assessment Bipolar disorder, severe, currently in manic episode Plan: -Patient continues to meet criteria for inpatient psychiatric admission for symptom stabilization and safety. Patient has not signed adult voluntary form and was placed in patient's chart. Patient deferred court and was agreeable to continue on with treatment. -Medications: Due to noncompliance will likely need to transition patient on to a long-acting injection. increased Abilify 10 mg daily for mood stabilization/psychosis. Discontinued seroquel due to nausea from it. Started on Trazodone 25mg QHS for insomnia/mood. -When necessary vistaril and zyprexa for agitation/aggression. -COVID test negative. -NRT - not needed as patient does not smoke -SW on board for discharge planning. Encouraged the patient to participate in milieu. Likely discharge in 1-2 days.
[2020-08-03] MEDS: ALBUTEROL NEBULIZED 2.5 MG/3 ML INHALATION SCH ×4 (09:44→20:42)
[2020-08-03] MEDS: amLODIPine 5 MG TAB PO SCH ×2 (16:19→22:37)
[2020-08-03] MEDS: traZODone HCL 50 MG TAB PO SCH (21:21)
[2020-08-03] MEDS: MONTELUKAST 10 MG TAB PO SCH (21:21)
[2020-08-04] MEDS ORDERED: hydrALAZINE HCL 25 MG TAB PO PRN (00:38)
[2020-08-04] MEDS ORDERED: cloNIDine 0.3 MG/24HR PATCH TRANSDERM SCH (00:45)
[2020-08-04] MEDS: ARIPiprazole 10 MG TAB PO SCH (07:54)
[2020-08-04] MEDS: lisinopriL 20 MG TAB PO SCH (07:54)
[2020-08-04] MEDS: METOPROLOL TARTRATE 50 MG TAB PO SCH ×2 (07:54→20:09)
[2020-08-04] MEDS: CALCIUM CARB-VIT D 500MG-200UN 1 EACH TAB PO SCH (07:54)
[2020-08-04] MEDS: amLODIPine 5 MG TAB PO SCH ×2 (07:54→20:10)
[2020-08-04] MEDS: SENNOSIDES-DOCUSATE SODIUM 1 EACH TAB PO SCH ×2 (07:54→20:09)
[2020-08-04] MEDS: FUROSEMIDE 40 MG TAB PO SCH ×2 (07:55→16:24)
[2020-08-04] MEDS: NON FORMULARY DRUG (Calcium/Magnesium/Zinc [Calcium-Magnesium-Zinc Tablet] 1 EACH Tablet) PO SCH (07:58)
[2020-08-04] MEDS: LORATADINE 10 MG TAB PO SCH (08:00)
[2020-08-04] MEDS: ALBUTEROL HFA INHALER INHALATION PRN (08:02)
[2020-08-04] MEDS: OMEGA PO SCH (08:19)
[2020-08-04] MEDS: NON FORMULARY DRUG (Vitamin B Complex [Vitamin B Complex] 1 EACH Capsule) PO SCH (08:20)
[2020-08-04] MEDS: ALBUTEROL NEBULIZED 2.5 MG/3 ML INHALATION SCH ×4 (09:49→21:42)
[2020-08-04] MEDS: MAG HYDROX/AL HYDROX/SIMETH 30 ML CUP PO PRN (10:02)
--- NOTE | 2020-08-04 10:42 | P.PN ---
Progress Note - Text Progress Note Date: 08/04/20 Interval History: Patient was seen wandering the hallways initially and claim that she was having flank pain and also was feeling "off". Patient states that she wanted to go lay down in her room. Supervisor Corduroy Cutting reviewed patient's chart and none when to go speak to the patient at the bedside. Patient complained of having blood in her stool last night and also this morning. She states that she showed the nurses. She claims that she has periodically had abdominal pain and discomfort chronically and has also had blood in her stool in the past and claims that "mylanta always clears it up for me". Patient appeared to be less preoccupied with discharge today and was more calm and cooperative. She rambled less and was more goal oriented. She continues to claim that she has been going to take her medications and was agreeable to eventually take the injection to ensure compliance. She states that she has been talking her over the phone every day. Her insight and judgment have been mildly improving. he claims that she has been talking with other people on the unit and has been getting along with them. She claims that she has been going to groups whenever she can. She states her mood is "ok" and denies any anxiety. She claims she was able to sleep fairly last night. At this time patient denies any suicidal or homical ideations, intent or plan. Patient denies any auditory, visual hallucinations. Patient denies any side effects from the medications and has been compliant with meds. Mental Status Exam: General Appearance: Patient appears to be stated age is short in stature, alert, more directable today, improving mildly. Patient appears to have improving hygiene and grooming. Behavior: Patient has no agitation or behavioral issues. Speech: Patient's speech rate is improving mildly, rambles less today Mood/Affect: Patient reports their mood is "ok", affect is congruent Suicidality/Homicidality: Patient denies having any homicidal ideation intent or plan. Denies any suicidal ideations intent or plan Perceptions: Patient denies any visual hallucinations and denies any auditory hallucinations Though content/process: Rambles, more goal oriented. Less tangential/circumstantial. No paranoia or delusions. Memory and concentration: AOX3, attention span has been improving. Judgment and insight: improving mildly Assessment Bipolar disorder, severe, currently in manic episode Plan: -Patient continues to meet criteria for inpatient psychiatric admission for symptom stabilization and safety. Patient has not signed adult voluntary form and was placed in patient's chart. Patient deferred court and was agreeable to continue on with treatment. -Medications: Due to noncompliance will likely need to transition patient on to a long-acting injection. Continue with Abilify 10 mg daily for mood stabilization/psychosis. Continue with Trazodone 25mg QHS for insomnia/mood. -When necessary vistaril and zyprexa for agitation/aggression. -COVID test negative. -Given patient's flank pain and also blood in her stool along with elevation in her blood pressure, will ask internal medicine to see patient today to give any further recommendations. Ordered CBC with differential along with comprehensive metabolic panel. -NRT - not needed as patient does not smoke -SW on board for discharge planning. Encouraged the patient to participate in milieu. Likely discharge in 1-2 days once patient receives her long acting injection.
[2020-08-04 10:53] LABS: Basophils # (A) 0.1 k/uL (0-0.2); Basophils % (A) 1 %; Eosinophils # (A) 0.4 k/uL (0-0.7); Eosinophils % (A) 3 %; HCT 42.3 % (34.0-46.0); Lymphocytes # (A) 1.6 k/uL (1.0-4.8); Lymphocytes % (A) 15 %; MCH 31.6 pg (25.0-35.0); MCHC 33.2 g/dL (31.0-37.0); Mean Platelet Volume 7.2; Monocytes # (A) 0.7 k/uL (0-1.0); Monocytes % (A) 7 %; Neutrophils # (A) 7.6 k/uL (1.3-7.7); Neutrophils % (A) 72 %; Platelet Count 222 k/uL (150-450); RBC 4.45 m/uL (3.80-5.40); WBC 10.5 k/uL (3.8-10.6)
[2020-08-04 10:57] LABS: Albumin 4.3 g/dL (3.5-5.0); Calcium 9.6 mg/dL (8.4-10.2); Potassium 4.2 mmol/L (3.5-5.1); Total Bilirubin 0.8 mg/dL (0.2-1.3); Total Protein 6.9 g/dL (6.3-8.2)
[2020-08-04] MEDS: hydrALAZINE HCL 25 MG TAB PO SCH (20:09)
[2020-08-04] MEDS: MONTELUKAST 10 MG TAB PO SCH (20:10)
[2020-08-04] MEDS: traZODone HCL 50 MG TAB PO SCH (20:10)
[2020-08-05] MEDS: lisinopriL 20 MG TAB PO SCH (04:08)
[2020-08-05] MEDS: amLODIPine 5 MG TAB PO SCH ×2 (04:08→20:46)
[2020-08-05] MEDS: ARIPiprazole 10 MG TAB PO SCH (08:26)
[2020-08-05] MEDS: CALCIUM CARB-VIT D 500MG-200UN 1 EACH TAB PO SCH (08:26)
[2020-08-05] MEDS: OMEGA PO SCH (08:27)
[2020-08-05] MEDS: SENNOSIDES-DOCUSATE SODIUM 1 EACH TAB PO SCH ×2 (08:27→20:45)
[2020-08-05] MEDS: LORATADINE 10 MG TAB PO SCH (08:27)
[2020-08-05] MEDS: METOPROLOL TARTRATE 50 MG TAB PO SCH ×2 (08:27→20:45)
[2020-08-05] MEDS: FUROSEMIDE 40 MG TAB PO SCH ×2 (08:27→16:39)
[2020-08-05] MEDS: hydrALAZINE HCL 25 MG TAB PO SCH ×3 (08:27→20:46)
[2020-08-05] MEDS: NON FORMULARY DRUG (Calcium/Magnesium/Zinc [Calcium-Magnesium-Zinc Tablet] 1 EACH Tablet) PO SCH (08:28)
[2020-08-05] MEDS: ALBUTEROL NEBULIZED 2.5 MG/3 ML INHALATION SCH ×5 (09:14→20:43)
--- NOTE | 2020-08-05 09:24 | P.PN ---
Progress Note - Text Progress Note Date: 08/05/20 Interval History: Patient was seen wandering the hallways after receiving her breathing treatment and was directable and agreeable to speak to technical writer and editor in the office. Patient states that she is doing better today and was less somatically preoccupied. She claims that she is not seeing any more blood in her stool since yesterday and states that she does not have any more flank pain. She claims that she sometimes gets kidney stones from eating red meat. Patient appeared to be less preoccupied with discharge today and was more calm and cooperative. She continues to ramble at times about her and him needing help at home however was more directable today. Patient continues to state that she is taking her medications and states that the Abilify has been helping her and she has been tolerating it well. She is denying any side effects at this time. Her insight and judgment have been mildly improving. She claims that she has been going to groups whenever she can. She states her mood is "good" and denies any anxiety. She claims she was able to sleep fairly last night. At this time patient denies any suicidal or homical ideations, intent or plan. Patient denies any auditory, visual hallucinations. Patient denies any side effects from the medications and has been compliant with meds. Mental Status Exam: General Appearance: Patient appears to be stated age is short in stature, alert, more directable today, improving mildly. Patient appears to have improving hygiene and grooming. Behavior: Patient has no agitation or behavioral issues. Speech: Patient's speech rate is improving mildly, rambles less today Mood/Affect: Patient reports their mood is "fine", affect is congruent Suicidality/Homicidality: Patient denies having any homicidal ideation intent or plan. Denies any suicidal ideations intent or plan Perceptions: Patient denies any visual hallucinations and denies any auditory hallucinations Though content/process: Rambles, more goal oriented. Less tangential/circumstantial. No paranoia or delusions. Memory and concentration: AOX3, attention span has been improving. Judgment and insight: improving mildly Assessment Bipolar disorder, severe, currently in manic episode Plan: -Patient continues to meet criteria for inpatient psychiatric admission for symptom stabilization and safety. Patient has not signed adult voluntary form and was placed in patient's chart. Patient deferred court and was agreeable to continue on with treatment. -Medications: Continue with Abilify 10 mg daily for mood stabilization/psychosis. Patient will be receiving Abilify Maintenna 400 mg IM dose today, patient can recieve the next dose of 300mg IM qmonthly on 08/18. Continue with Trazodone 25mg QHS for insomnia/mood. -When necessary vistaril and zyprexa for agitation/aggression. -COVID test negative. -Given patient's elevated blood pressure, will ask internal medicine to see patient today to give any further recommendations. Reviewed CBC with differential along with comprehensive metabolic panel. -NRT - not needed as patient does not smoke -SW on board for discharge planning. Encouraged the patient to participate in milieu. Likely discharge tomorrow. She will be following up with [facility].
[2020-08-05] MEDS ORDERED: ARIPiprazole IM SYRINGE 400 MG (NO CHARGE) PHARMACY STOCK IM ONE (10:00)
[2020-08-05] MEDS: NON FORMULARY DRUG (Vitamin B Complex [Vitamin B Complex] 1 EACH Capsule) PO SCH (10:17)
[2020-08-05] MEDS: ALBUTEROL HFA INHALER INHALATION PRN (10:38)
[2020-08-05] MEDS: traZODone HCL 50 MG TAB PO SCH (20:43)
[2020-08-05] MEDS: MONTELUKAST 10 MG TAB PO SCH (20:45)
[2020-08-05] MEDS: MAG HYDROX/AL HYDROX/SIMETH 30 ML CUP PO PRN (22:06)
[2020-08-06 05:07] VITALS: BP 176/85; RESP 16; TEMP 98
[2020-08-06] MEDS: SENNOSIDES-DOCUSATE SODIUM 1 EACH TAB PO SCH (08:58)
[2020-08-06] MEDS: LORATADINE 10 MG TAB PO SCH (08:58)
[2020-08-06] MEDS: ARIPiprazole 10 MG TAB PO SCH (08:58)
[2020-08-06] MEDS: CALCIUM CARB-VIT D 500MG-200UN 1 EACH TAB PO SCH (08:58)
[2020-08-06] MEDS: METOPROLOL TARTRATE 50 MG TAB PO SCH (08:59)
[2020-08-06] MEDS: amLODIPine 5 MG TAB PO SCH (08:59)
[2020-08-06] MEDS: FUROSEMIDE 40 MG TAB PO SCH (08:59)
[2020-08-06] MEDS: hydrALAZINE HCL 25 MG TAB PO SCH (08:59)
[2020-08-06] MEDS: lisinopriL 20 MG TAB PO SCH (08:59)
--- NOTE | 2020-08-06 09:18 | P.DS ---
Providers Date of admission: 07/28/20 17:42 Expected date of discharge: 08/06/20 Attending physician: Messi Dinh MD Consults: 07/28/20 18:12 Consult Physician Routine Consulting Provider: Marvin Hendricks Consult Reason/Comments: H&P and medical Do you want consulting provider notified?: Yes Primary care physician: Jonatan Ferrera - Discharge Diagnosis(es) (1) Bipolar disorder with severe onelia Current Visit: Yes Status: Acute Priority: High Hospital Course: Admission HPI: Admission and was committed by speech writer "Patient is a 70-year-old female who currently lives with her in a house has 3 kids. Patient presented to the hospital and was brought in by her for psychiatric evaluation. Patient has a history of bipolar disorder and was last admitted to the mental health unit in January 2020. Patient according to ER report came in on a petition filled out by a [facility] older adult social work specialist who stated the patient was hyperverbal, tangential, agitated and was laughing and not taking her medications. Patient also stated that patient wanted to fly to [place] and was tearful about losing her father. Patient's UDS was positive for benzodiazepines. Patient apparently told nursing staff that her granddaughter was exposed to covid possibly at school and patient was placed in isolation/quarantine and currently awaiting covid test. Patient was seen inside her room today and was fairly intrusive with speech writer and was difficult to redirect and interrupt. She was tangential, rambled had pressured speech and a flight of ideas. She spoke significantly about the covid pandemic and also about her grandchildren. She also spoke significantly about [place] and a psychiatrist that she was being seen there for her bipolar. She also spoke about her . Patient was for the most part he logical. She had racing thoughts and a flight of ideas. She claims that she has poor sleep. Patient was responding to internal stimuli. Patient denies any suicidal or homicidal ideations intent or plan. At this time patient denies any auditory or visual hallucinations. Patient admits to using alcohol occasionally however states that she does not smoke cigarettes or did any other drugs." Hospital course: Upon admission to the unit patient was initially pressured in her speech, tangential and exhibiting flight of ideas and racing thoughts. Patient was however admitted involuntarily and ended up signing a deferral with the real estate associate attorney.. Patient got along well with other patients on the unit and followed unit protocol. Patient was compliant with the medications and denied any side effects throughout hospital course. Patient was started on Abilify and titrated up to a dose of 10 mg daily for mood stabilization. Patient was then transitioned onto Abilify Maintenna and given 400 mg IM injection on 08/05/2020 and will be due for her next injection of 300 mg IM on 08/03/2020. Patient was also started on trazodone 25 mg daily at bedtime for insomnia/mood. Patient spoke of her stressors and engaged in therapy both group and individual. Patient was also seen by medical team for history and physical exam. Patient did have elevated blood pressure and was evaluated by internal medicine who adjusted her blood pressure medications and increase the doses. Patient was also had constipation and admitted to having minor amounts of blood in her stool which resolved after 1 day. Throughout the course of the hospitalization patient gradually improved with regards to mood stabilization, anxiety, sleep and became future oriented with improved insight and judgment. On the day of discharge patient denied any suicidal or homicidal ideations intent or plan denied any auditory or visual hallucinations. Patient endorsed wanting to live for her health and family. Patient denied any paranoia and did not endorse any delusions. Patient does not have a significant history of substance abuse however was counseled on abstaining from all substances including alcohol and marijuana. Patient was also counseled on the medications and need for regular compliance and was encouraged to follow-up with their outpatient appointment for mental health and also for primary care. Prior to discharge a family meeting will be arranged by older adult social work specialist to answer any questions and ensure safety upon discharge. Mental status exam: General Appearance: Patient appears to be short in stature, stated age is alert, pleasant, and cooperative. Patient is in no acute distress and has improved hygiene and grooming Behavior: Patient is calmly seated without any agitated behavior. Speech: Patient's speech is fluent and nonpressured. Mood/Affect: Patient reports their mood is "good", affect is congruent and euthymic. Suicidality/Homicidality: Patient denies having any suicidal or homicidal ideation intent or plan. Perceptions: Patient denies any auditory or visual hallucinations. Though content/process: There is no evidence of any delusional thought content and thought process is linear and goal-directed. Memory and concentration: AOX3, grossly intact for the purposes of this session. Can spell "WORLD" backwards correctly. Judgment and insight: improved with guarded prognosis Impression: Bipolar disorder, severe, manic episode Plan: -Continue with discharge today as patient has improved and stabilized psychiatrically and is not currently an imminent threat to herself and/or others. -Continue medications: Continue with Abilify by mouth 10 mg daily for 13 more days then discontinue. Patient was transitioned onto Abilify Maintenna and given 400 mg IM injection on 08/05/2020 and will be due for her next injection of 300 mg IM on 08/03/2020. Continue with trazodone 25 mg daily at bedtime for insomnia/mood. -Patient was counseled on the need for medication compliance and appropriate follow-up at mental health and also primary care for medical issues. Patient verbalized understanding and agreed. -Social work to arrange for and conduct family meeting to ensure safety upon discharge and answer any questions/concerns. Social work also to arrange for patients follow up appointments with [facility] for psychiatric care along with follow up with primary care provider. Discussed with patient the importance of follow- up with her primary care provider for her elevated blood pressure along with bloody stools which have resolved. -Patient counseled on abstaining from recreational drugs and marijuana and alcohol. Was informed/educated on the adverse effects on their physical and mental health. Patient verbally agreed and understood. -Patient was instructed to return to the hospital or seek immediate medical care if their psychiatric or medical symptoms do worsen or reoccur. Allergies Allergy/AdvReac Type Severity Reaction Status Date / Time influenza virus vaccine, Allergy Swelling Verified 07/29/20 02:36 specific Iodine and Iodide Containing Allergy Rash/Hives Verified 07/29/20 02:36 Produc aspirin AdvReac urinating Verified 07/29/20 02:36 blood codeine AdvReac Nausea Verified 07/29/20 02:36 Laboratory Results WBC 10.5 k/uL (3.8-10.6) 08/04/20 10:16 RBC 4.45 m/uL (3.80-5.40) 08/04/20 10:16 Hgb 14.0 gm/dL (11.4-16.0) 08/04/20 10:16 Hct 42.3 % (34.0-46.0) 08/04/20 10:16 MCV 95.0 fL (80.0-100.0) 08/04/20 10:16 MCH 31.6 pg (25.0-35.0) 08/04/20 10:16 MCHC 33.2 g/dL (31.0-37.0) 08/04/20 10:16 RDW 13.0 % (11.5-15.5) 08/04/20 10:16 Plt Count 222 k/uL (150-450) 08/04/20 10:16 MPV 7.2 08/04/20 10:16 Neutrophils % 72 % 08/04/20 10:16 Lymphocytes % 15 % 08/04/20 10:16 Monocytes % 7 % 08/04/20 10:16 Eosinophils % 3 % 08/04/20 10:16 Basophils % 1 % 08/04/20 10:16 Neutrophils # 7.6 k/uL (1.3-7.7) 08/04/20 10:16 Lymphocytes # 1.6 k/uL (1.0-4.8) 08/04/20 10:16 Monocytes # 0.7 k/uL (0-1.0) 08/04/20 10:16 Eosinophils # 0.4 k/uL (0-0.7) 08/04/20 10:16 Basophils # 0.1 k/uL (0-0.2) 08/04/20 10:16 Sodium 139 mmol/L (137-145) 08/04/20 10:16 Potassium 4.2 mmol/L (3.5-5.1) 08/04/20 10:16 Chloride 103 mmol/L (98-107) 08/04/20 10:16 Carbon Dioxide 30 mmol/L (22-30) 08/04/20 10:16 Anion Gap 6 mmol/L 08/04/20 10:16 BUN 23 mg/dL (7-17) H 08/04/20 10:16 Creatinine 0.99 mg/dL (0.52-1.04) 08/04/20 10:16 Est GFR (CKD-EPI)AfAm 67 (>60 ml/min/1.73 sqM) 08/04/20 10:16 Est GFR (CKD-EPI)NonAf 58 (>60 ml/min/1.73 sqM) 08/04/20 10:16 Glucose 64 mg/dL (74-99) L 08/04/20 10:[address] Glu mg/dL 117 07/29/20 07:59 Hemoglobin A1c 5.7 % (4.0-6.0) 07/29/20 07:59 Calcium 9.6 mg/dL (8.4-10.2) 08/04/20 10:16 Total Bilirubin 0.8 mg/dL (0.2-1.3) 08/04/20 10:16 AST 21 U/L (14-36) 08/04/20 10:16 ALT 23 U/L (4-34) 08/04/20 10:16 Alkaline Phosphatase 53 U/L (38-126) 08/04/20 10:16 Total Protein 6.9 g/dL (6.3-8.2) 08/04/20 10:16 Albumin 4.3 g/dL (3.5-5.0) 08/04/20 10:16 Triglycerides 167 mg/dL (<150) H 07/29/20 07:59 Cholesterol 217 mg/dL (<200) H 07/29/20 07:59 LDL Cholesterol, Calc 74 mg/dL (0-99) 07/29/20 07:59 HDL Cholesterol 110 mg/dL (40-60) H 07/29/20 07:59 TSH 2.550 mIU/L (0.465-4.680) 07/29/20 07:59 Urine Color Light Yellow 07/28/20 12:29 Urine Appearance Clear (Clear) 07/28/20 12:29 Urine pH 8.0 (5.0-8.0) 07/28/20 12:29 Ur Specific [place] 1.007 (1.001-1.035) 07/28/20 12:29 Urine Protein Negative (Negative) 07/28/20 12:29 Urine Glucose (UA) Negative (Negative) 07/28/20 12:29 Urine Ketones Negative (Negative) 07/28/20 12:29 Urine Blood Negative (Negative) 07/28/20 12:29 Urine Nitrite Negative (Negative) 07/28/20 12:29 Urine Bilirubin Negative (Negative) 07/28/20 12:29 Urine Urobilinogen <2.0 mg/dL (<2.0) 07/28/20 12:29 Ur Leukocyte Esterase Negative (Negative) 07/28/20 12:29 Urine Opiates Screen Not Detected (NotDetected) 07/28/20 12:29 Ur Oxycodone Screen Not Detected (NotDetected) 07/28/20 12:29 Urine Methadone Screen Not Detected (NotDetected) 07/28/20 12:29 Ur Propoxyphene Screen Not Detected (NotDetected) 07/28/20 12:29 Ur Barbiturates Screen Not Detected (NotDetected) 07/28/20 12:29 U Tricyclic Antidepress Not Detected (NotDetected) 07/28/20 12:29 Ur Phencyclidine Scrn Not Detected (NotDetected) 07/28/20 12:29 Ur Amphetamines Screen Not Detected (NotDetected) 07/28/20 12:29 U Methamphetamines Scrn Not Detected (NotDetected) 07/28/20 12:29 U Benzodiazepines Scrn Detected (NotDetected) H 07/28/20 12:29 Urine Cocaine Screen Not Detected (NotDetected) 07/28/20 12:29 U Marijuana (THC) Screen Not Detected (NotDetected) 07/28/20 12:29 Coronavirus (PCR) Not Detected (Not Detectd) 07/29/20 10:38 Vital Signs Temp 98.0 F 08/06/20 04:54 Pulse 70 08/06/20 04:54 Resp 16 08/06/20 04:54 BP 176/85 08/06/20 04:54 Pulse Ox 95 08/02/20 04:18 Patient Condition at Discharge: Stable Plan - Discharge Summary Discharge Rx Participant: No New Discharge Prescriptions: New ARIPiprazole [Abilify] 10 mg PO DAILY 13 Days tab hydrALAZINE HCL [Apresoline] 25 mg PO TID 30 Days tab cloNIDine 0.3 MG/24HR PATCH [Catapres-TTS] 1 patch TRANSDERM Q7D 28 Days #4 patch traZODone HCL [Desyrel] 25 mg PO HS 30 Days tab Furosemide [Lasix] 40 mg PO BID@0900,1600 30 Days tab Metoprolol Tartrate [Lopressor] 50 mg PO BID 30 Days tab amLODIPine [Norvasc] 5 mg PO BID 30 Days tab Calcium Carb-Vit D 500Mg-200Un [Oscal 500+D] 1 each PO DAILY tab Sennosides-Docusate Sodium [Senokot-S] 1 each PO BID 30 Days tab lisinopriL [Zestril] 40 mg PO DAILY 30 Days tab ARIPiprazole [Abilify Maintena] 300 mg PO QMONTHLY #1 syr Continue Albuterol Nebulized [Ventolin Nebulized] 2.5 mg INHALATION RT-QID #1 ml Vitamin B Complex 1 cap PO DAILY Acetaminophen Tab [Tylenol] 650 mg PO Q4H PRN PRN Reason: Pain Albuterol Inhaler [Ventolin Hfa Inhaler] 1 - 2 puff INHALATION RT-QID PRN PRN Reason: Shortness Of Breath Montelukast [Singulair] 10 mg PO HS Cetirizine HCl 10 mg PO DAILY Discontinued Hydrocortisone Oint [Hydrocortisone 2.5% Oint] 1 applic TOPICAL DAILY PRN PRN Reason: Rash lisinopriL 40 mg PO DAILY 30 Days tab Logan 3-6-9 1200mg 1 cap PO DAILY Nasal [place](Unknown) 1 spray EA NOSTRIL DAILY PRN PRN Reason: Allergy Symptoms Furosemide [Lasix] 40 mg PO BID Calcium/Magnesium/Zinc [Azycfwo-Eawamvaip-Hiks Tablet] 1 tab PO DAILY Calcium 600mg/Vitamin D3(Unknown) 1 tab PO DAILY hydrOXYzine HCL [Atarax] 50 mg PO Q8H PRN PRN Reason: Itching QUEtiapine [SEROquel] 200 mg PO HS predniSONE [Deltasone] 60 mg PO DAILY Metoprolol Tartrate [Lopressor] 50 mg PO BID diazePAM [Valium] 5 mg PO HS PRN PRN Reason: ANXIETY/SLEEP cloNIDine 0.1 MG/24HR PATCH [Catapres-TTS] 1 patch TRANSDERM Q7D Amoxic-Pot Clav 875-125Mg [Augmentin 875-125] 1 tab PO BID Vitamin B-12(Unknown Dose) 1 tab PO DAILY Discharge Medication List Albuterol Nebulized [Ventolin Nebulized] 2.5 mg INHALATION RT-QID #1 ml 01/29/20 [Rx] Acetaminophen Tab [Tylenol] 650 mg PO Q4H PRN 07/28/20 [History] Albuterol Inhaler [Ventolin Hfa Inhaler] 1 - 2 puff INHALATION RT-QID PRN 07/28/20 [History] Cetirizine HCl 10 mg PO DAILY 07/28/20 [History] Montelukast [Singulair] 10 mg PO HS 07/28/20 [History] Vitamin B Complex 1 cap PO DAILY 07/28/20 [History] ARIPiprazole [Abilify Maintena] 300 mg PO QMONTHLY #1 syr 08/06/20 [Rx] ARIPiprazole [Abilify] 10 mg PO DAILY 13 Days tab 08/06/20 [Rx] Calcium Carb-Vit D 500Mg-200Un [Oscal 500+D] 1 each PO DAILY tab 08/06/20 [Rx] Furosemide [Lasix] 40 mg PO BID@0900,1600 30 Days tab 08/06/20 [Rx] Metoprolol Tartrate [Lopressor] 50 mg PO BID 30 Days tab 08/06/20 [Rx] Sennosides-Docusate Sodium [Senokot-S] 1 each PO BID 30 Days tab 08/06/20 [Rx] amLODIPine [Norvasc] 5 mg PO BID 30 Days tab 08/06/20 [Rx] cloNIDine 0.3 MG/24HR PATCH [Catapres-TTS] 1 patch TRANSDERM Q7D 28 Days #4 patch 08/06/20 [Rx] hydrALAZINE HCL [Apresoline] 25 mg PO TID 30 Days tab 08/06/20 [Rx] lisinopriL [Zestril] 40 mg PO DAILY 30 Days tab 08/06/20 [Rx] traZODone HCL [Desyrel] 25 mg PO HS 30 Days tab 08/06/20 [Rx] Follow up Appointment(s)/Referral(s): [facility] [Outside] - 08/11/20 2:00 pm (08-11-20 @ 2:00 with Thong Norton at [place] office for transfer to [place] office. 08-12-20 @ 11:30 with ONESIMO Munson at [facility] office for psych eval. ) Jonatan Ferrera MD [Primary Care Provider] - 1-2 days Activity/Diet/Wound Care/Special Instructions: Activity and diet as tolerated. Avoid the use of street drugs and alcohol. Take all medications as prescribed. When you are in need of refills on your medications please contact your medical provider and/or outpatient psychiatrist to have this done. Please go to scheduled outpatient appointment for aftercare t reatment. If symptoms return or become worse, call the crisis line at and/or go to the nearest emergency room for evaluation. Discharge Disposition: HOME SELF-CARE
[2020-08-06] MEDS: ALBUTEROL NEBULIZED 2.5 MG/3 ML INHALATION SCH (10:20)
[2020-08-06 10:32] VITALS: PULSE 65
== END 2020-08-06 11:16 | disposition home or self-care (01) | DRG 885 ==
LOC: EC 11:49 → 3MHU 17:42
PROVIDERS: ADMIT Psychiatry & Neurology Psychiatry; ATTEND Psychiatry & Neurology Psychiatry
DX: F31.9 Bipolar disorder, unspecified (principal); E78.5 Hyperlipidemia, unspecified; F41.9 Anxiety disorder, unspecified; G47.00 Insomnia, unspecified; I10 Essential (primary) hypertension; J44.9 Chronic obstructive pulmonary disease, unspecified; K59.00 Constipation, unspecified; J40 Bronchitis, not specified as acute or chronic; Z20.828 Contact with and (suspected) exposure to other viral communicable diseases; Z90.710 Acquired absence of both cervix and uterus; Z79.899 Other long term (current) drug therapy; Z79.51 Long term (current) use of inhaled steroids; Z78.9 Other specified health status; Z88.6 Allergy status to analgesic agent; Z88.5 Allergy status to narcotic agent; Z88.7 Allergy status to serum and vaccine; Z91.09 Other allergy status, other than to drugs and biological substances
CPT/HCPCS: 80053; 80061; 80306; 81003; 82075; 83036; 84443; 85025; 87635; 94640; 99285

== ENCOUNTER 2023-09-09 22:50 | Emergency (ER) | payer MEDICARE, BC ==
[2023-09-09 23:01] VITALS: TEMP 97.6
[2023-09-10 00:01] LABS: Basophils # (A) 0.1 k/uL (0-0.2); Basophils % (A) 1 %; Eosinophils # (A) 0.3 k/uL (0-0.7); Eosinophils % (A) 3 %; HCT 42.1 % (34.0-46.0); HGB 13.8 gm/dL (11.4-16.0); Lymphocytes % (A) 18 %; MCH 30.6 pg (25.0-35.0); MCHC 32.9 g/dL (31.0-37.0); MCV 93.1 fL (80.0-100.0); Mean Platelet Volume 7.5; Monocytes # (A) 0.7 k/uL (0-1.0); Monocytes % (A) 6 %; Neutrophils % (A) 71 %; Platelet Count 285 k/uL (150-450); RBC 4.52 m/uL (3.80-5.40); RDW 12.4 % (11.5-15.5); WBC 11.3 k/uL (3.8-10.6)
[2023-09-10 00:09] LABS: ALT 32 U/L (4-34); AST 33 U/L (14-36); African American GFR (CKD) 39 (>60 ml/min/1.73 sqM); Albumin 4.2 g/dL (3.5-5.0); Alkaline Phosphatase 84 U/L (38-126); Anion Gap 11 mmol/L; Blood Urea Nitrogen 25 mg/dL (7-17); Calcium 9.2 mg/dL (8.4-10.2); Carbon Dioxide 30 mmol/L (22-30); Chloride 96 mmol/L (98-107); Glucose 106 mg/dL (74-99); Non-African American GFR(CKD) 34 (>60 ml/min/1.73 sqM); Potassium 3.5 mmol/L (3.5-5.1); Sodium 137 mmol/L (137-145); Total Bilirubin 0.3 mg/dL (0.2-1.3); Total Protein 6.6 g/dL (6.3-8.2)
[2023-09-10 00:34] LABS: Appearance,Urine Clear (Clear); Bilirubin,Urine Negative (Negative); Blood,Urine Negative (Negative); Color,Urine Colorless; Glucose,Urine (UA) Negative (Negative); Ketones,Urine Negative (Negative); Leukocyte Esterase,Urine Negative (Negative); Nitrite,Urine Negative (Negative); PH, Urine 6.5 (5.0-8.0); Protein,Urine Negative (Negative); Specific Gravity,Urine 1.014 (1.001-1.035); Urobilinogen,Urine <2.0 mg/dL (<2.0)
--- NOTE | 2023-09-10 02:21 | XR ---
EXAM: XR Chest, 2 Views CLINICAL HISTORY: ITS.REASON XR Reason: cough TECHNIQUE: Frontal and lateral views of the chest. COMPARISON: No relevant prior studies available. FINDINGS: Lungs: No consolidation or mass. Pleural space: No effusion. Heart: cardiomegaly. Bones/joints: No acute findings. IMPRESSION: No acute cardiopulmonary process.
[2023-09-10 02:37] VITALS: BP 151/78; PULSE 70; RESP 16
[2023-09-10] MEDS ORDERED: traZODone HCL 50 MG TAB PO STA (02:44)
--- NOTE | 2023-09-10 02:45 | ED ---
Extremity Problem HPI - General Chief complaint: Extremity Problem,Nontraumatic Stated complaint: Swollen legs Time Seen by Provider: 09/09/23 23:01 Source: patient Mode of arrival: ambulatory Limitations: no limitations - History of Present Illness Initial comments: Patient is 73-year-old woman who is brought to have evaluation of her legs and also of concerns related to medication reaction. The patient reportedly a be developing onelia after starting steroid. When I interview patient, denies increase in pain. No current fever, chest pain MD Complaint: other -: hour(s) Location: bilateral lower extremity History of Same: Yes Radiation: none Quality: burning Consistency: now resolved Improves with: medication Worsens with: nothing Associated Symptoms: other - Related Data Home Medications Medication Instructions Recorded Confirmed Acetaminophen Tab [Tylenol] 650 mg PO Q4H PRN 07/28/20 07/29/20 Albuterol Inhaler [Ventolin Hfa 1 - 2 puff INHALATION RT-QID PRN 07/28/20 07/29/20 Inhaler] Cetirizine HCl 10 mg PO DAILY 07/28/20 07/29/20 Montelukast [Singulair] 10 mg PO HS 07/28/20 07/29/20 Vitamin B Complex 1 cap PO DAILY 07/28/20 07/29/20 Previous Rx's Medication Instructions Recorded Albuterol Nebulized [Ventolin 2.5 mg INHALATION RT-QID #1 ml 01/29/20 Nebulized] ARIPiprazole [Abilify Maintena] 300 mg PO QMONTHLY #1 syr 08/06/20 ARIPiprazole [Abilify] 10 mg PO DAILY 13 Days tab 08/06/20 Calcium Carb-Vit D 500Mg-5Mcg 1 each PO DAILY tab 08/06/20 [Oscal 500+D 5 Mcg (200 Iu)] Furosemide [Lasix] 40 mg PO BID@0900,1600 30 Days tab 08/06/20 Metoprolol Tartrate [Lopressor] 50 mg PO BID 30 Days tab 08/06/20 Sennosides-Docusate Sodium 1 each PO BID 30 Days tab 08/06/20 [Senokot-S] amLODIPine [Norvasc] 5 mg PO BID 30 Days tab 08/06/20 cloNIDine 0.3 MG/24HR PATCH 1 patch TRANSDERM Q7D 28 Days #4 08/06/20 [Catapres-TTS] patch hydrALAZINE HCL [Apresoline] 25 mg PO TID 30 Days tab 08/06/20 lisinopriL [Zestril] 40 mg PO DAILY 30 Days tab 08/06/20 traZODone HCL [Desyrel] 25 mg PO HS 30 Days tab 08/06/20 Cephalexin [Keflex] 500 mg PO Q6HR #28 cap 09/10/23 Cephalexin [Keflex] 500 mg PO Q6HR #28 cap 09/10/23 Sulfamethox-Tmp 800-160Mg [Bactrim 1 tab PO Q12HR 7 Days #14 tab 09/22/23 DS 800-160 mg] Allergies Allergy/AdvReac Type Severity Reaction Status Date / Time influenza virus vaccine, Allergy Swelling Verified 09/22/23 12:19 specific Iodine and Iodide Containing Allergy Rash/Hives Verified 09/22/23 12:19 Produc aspirin AdvReac urinating Verified 09/22/23 12:19 blood codeine AdvReac Nausea Verified 09/22/23 12:19 Review of Systems ROS Statement: Those systems with pertinent positive or pertinent negative responses have been documented in the HPI. ROS Other: All systems not noted in ROS Statement are negative. Constitutional: Denies: fever, chills, weakness Respiratory: Denies: cough, dyspnea Cardiovascular: Denies: chest pain, palpitations Gastrointestinal: Denies: abdominal pain, vomiting, diarrhea Genitourinary: Denies: dysuria Musculoskeletal: Denies: back pain Skin: Reports: as per HPI, rash Neurological: Denies: headache, weakness Past Medical History Past Medical History: COPD, Hypertension History of Any Multi-Drug Resistant Organisms: None Reported Past Surgical History: Hysterectomy, Orthopedic Surgery Past Psychological History: Bipolar Smoking Status: Never smoker Past Alcohol Use History: Occasional Past Drug Use History: None Reported General Exam Limitations: no limitations General appearance: alert, in no apparent distress Head exam: Present: atraumatic, normocephalic Eye exam: Present: normal appearance. Absent: scleral icterus, conjunctival injection ENT exam: Present: normal oropharynx Neck exam: Present: normal inspection Respiratory exam: Present: normal lung sounds bilaterally. Absent: respiratory distress, wheezes, rales, rhonchi, stridor Cardiovascular Exam: Present: regular rate, normal rhythm, normal heart sounds. Absent: systolic murmur, diastolic murmur, rubs, gallop GI/Abdominal exam: Present: soft. Absent: distended, tenderness, guarding, rebound, rigid, mass Extremities exam: Present: full ROM, normal capillary refill, pedal edema, other (There is trace warmth and edema bilateral lower extremities, reportedly improving). Absent: tenderness Back exam: Present: normal inspection. Absent: CVA tenderness (R), CVA tenderness (L) Neurological exam: Present: alert Psychiatric exam: Present: manic. Absent: homicidal ideation, suicidal ideation Skin exam: Present: warm, dry, intact, normal color, erythema (See above) Course Vital Signs 09/09/23 09/10/23 22:55 02:18 Temperature 97.6 F Pulse Rate 73 70 Respiratory 18 16 Rate Blood Pressure 188/91 151/78 O2 Sat by Pulse 95 95 Oximetry Medical Decision Making - Medical Decision Making Was pt. sent in by a medical professional or institution (, PA, SOFTWARE RELIABILITY ENGINEER, urgent care, hospital, or [facility]...) When possible be specific @ -[No] Did you speak to anyone other than the patient for history (EMS, parent, family, police, friend...)? What history was obtained from this source @ -[No] Did you review nursing and triage notes (agree or disagree)? Why? @ -[I reviewed and agree with nursing and triage notes] Were old charts reviewed (outside hosp., previous admission, EMS record, old EKG, old radiological studies, urgent care reports/EKG's, [facility] records)? Report findings @ -[No old charts were reviewed] Differential Diagnosis (chest pain, altered mental status, abdominal pain women, abdominal pain men, vaginal bleeding, weakness, fever, dyspnea, syncope, headache, dizziness, GI bleed, back pain, seizure, CVA, palpatations, mental health, musculoskeletal)? @ -[Differential Mental Health Depression, anxiety, bipolar, psychosis, schizophrenia, borderline personality, situational depression, adjustment disorder, behavioral disorder, brain tumor, malingering, substance abuse, encephalopathy, medication reaction, dementia, hypothyroidism, degenerative neurologic disorder, lupus.... This is not meant to be all-inclusive list EKG interpreted by me (3pts min.). @ -[As above] X-rays interpreted by me (1pt min.). @ -[None done] CT interpreted by me (1pt min.). @ -[None done] U/S interpreted by me (1pt. min.). @ -[None done] What testing was considered but not performed or refused? (CT, X-rays, U/S, labs)? Why? @ -[None] What meds were considered but not given or refused? Why? @ -[None] Did you discuss the management of the patient with other professionals (professionals i.e. , PA, SOFTWARE RELIABILITY ENGINEER, lab, RT, psych nurse, social insurance specialist, cork molder, teacher, fisheries enforcement officer, shelter case manager)? Give summary @ -[No] Was smoking cessation discussed for >3mins.? @ -[No] Was critical care preformed (if so, how long)? @ -[No] Were there social determinants of health that impacted care today? How? (Homelessness, low income, unemployed, alcoholism, drug addiction, transportation, low edu. Level, literacy, decrease access to med. care, long-term, rehab)? @ -[No] Was there de-escalation of care discussed even if they declined (Discuss DNR or withdrawal of care, Hospice)? DNR status @ -[No] What co-morbidities impacted this encounter? (DM, HTN, Smoking, COPD, CAD, Cancer, CVA, ARF, Chemo, Hep., AIDS, mental health diagnosis, sleep apnea, morbid obesity)? @ -[None] Was patient admitted / discharged? Hospital course, mention meds given and route, prescriptions, significant lab abnormalities, going to OR and other pertinent info. @ -[Patient is 73-year-old woman here to have evaluation for possible side effect related to treatment of her lower summary cellulitis. I patient has improved here and would like to continue as outpatient. Discussed appropriate further care and follow-up as well as return parameters. Undiagnosed new problem with uncertain prognosis? @ -[No] Drug Therapy requiring intensive monitoring for toxicity (Heparin, Nitro, Insulin, Cardizem)? @ -[No] Were any procedures done? @ -[No] Diagnosis/symptom? @ -[cellulitis Acute, or Chronic, or Acute on Chronic? @ -[acute Uncomplicated (without systemic symptoms) or Complicated (systemic symptoms)? @ -[uncomplicated Side effects of treatment? @ -[No] Exacerbation, Progression, or Severe Exacerbation? @ -[No] Poses a threat to life or bodily function? How? (Chest pain, USA, OR, pneumonia, PE, COPD, DKA, ARF, appy, cholecystitis, CVA, Diverticulitis, Homicidal, Suicidal, threat to staff... and all critical care pts) @ -[No] - Lab Data Result diagrams: 09/09/23 23:02 09/09/23 23:02 Lab Results 09/09/23 09/09/23 09/09/23 Range/Units 23:02 23:02 23:02 WBC 11.3 H (3.8-10.6) k/uL RBC 4.52 (3.80-5.40) m/uL Hgb 13.8 (11.4-16.0) gm/dL Hct 42.1 (34.0-46.0) % MCV 93.1 (80.0-100.0) fL MCH 30.6 (25.0-35.0) pg MCHC 32.9 (31.0-37.0) g/dL RDW 12.4 (11.5-15.5) % Plt Count 285 (150-450) k/uL MPV 7.5 Neutrophils % 71 % Lymphocytes % 18 % Monocytes % 6 % Eosinophils % 3 % Basophils % 1 % Neutrophils # 8.0 H (1.3-7.7) k/uL Lymphocytes # 2.0 (1.0-4.8) k/uL Monocytes # 0.7 (0-1.0) k/uL Eosinophils # 0.3 (0-0.7) k/uL Basophils # 0.1 (0-0.2) k/uL Sodium 137 (137-145) mmol/L Potassium 3.5 (3.5-5.1) mmol/L Chloride 96 L (98-107) mmol/L Carbon Dioxide 30 (22-30) mmol/L Anion Gap 11 mmol/L BUN 25 H (7-17) mg/dL Creatinine 1.51 H (0.52-1.04) mg/dL Est GFR (CKD-EPI)AfAm 39 (>60 ml/min/1.73 sqM) Est GFR (CKD-EPI)NonAf 34 (>60 ml/min/1.73 sqM) Glucose 106 H (74-99) mg/dL Plasma Lactic Acid David 1.1 (0.7-2.0) mmol/L Calcium 9.2 (8.4-10.2) mg/dL Total Bilirubin 0.3 (0.2-1.3) mg/dL AST 33 (14-36) U/L ALT 32 (4-34) U/L Alkaline Phosphatase 84 (38-126) U/L Total Protein 6.6 (6.3-8.2) g/dL Albumin 4.2 (3.5-5.0) g/dL TSH 1.250 (0.465-4.680) mIU/L Urine Color Urine Appearance (Clear) Urine pH (5.0-8.0) Ur Specific [place] (1.001-1.035) Urine Protein (Negative) Urine Glucose (UA) (Negative) Urine Ketones (Negative) Urine Blood (Negative) Urine Nitrite (Negative) Urine Bilirubin (Negative) Urine Urobilinogen (<2.0) mg/dL Ur Leukocyte Esterase (Negative) Influenza Type A (PCR) (Not Detectd) Influenza Type B (PCR) (Not Detectd) RSV (PCR) (Not Detectd) SARS-CoV-2 (PCR) (Not Detectd) 09/09/23 09/09/23 Range/Units 23:21 23:59 WBC (3.8-10.6) k/uL RBC (3.80-5.40) m/uL Hgb (11.4-16.0) gm/dL Hct (34.0-46.0) % MCV (80.0-100.0) fL MCH (25.0-35.0) pg MCHC (31.0-37.0) g/dL RDW (11.5-15.5) % Plt Count (150-450) k/uL MPV Neutrophils % % Lymphocytes % % Monocytes % % Eosinophils % % Basophils % % Neutrophils # (1.3-7.7) k/uL Lymphocytes # (1.0-4.8) k/uL Monocytes # (0-1.0) k/uL Eosinophils # (0-0.7) k/uL Basophils # (0-0.2) k/uL Sodium (137-145) mmol/L Potassium (3.5-5.1) mmol/L Chloride (98-107) mmol/L Carbon Dioxide (22-30) mmol/L Anion Gap mmol/L BUN (7-17) mg/dL Creatinine (0.52-1.04) mg/dL Est GFR (CKD-EPI)AfAm (>60 ml/min/1.73 sqM) Est GFR (CKD-EPI)NonAf (>60 ml/min/1.73 sqM) Glucose (74-99) mg/dL Plasma Lactic Acid David (0.7-2.0) mmol/L Calcium (8.4-10.2) mg/dL Total Bilirubin (0.2-1.3) mg/dL AST (14-36) U/L ALT (4-34) U/L Alkaline Phosphatase (38-126) U/L Total Protein (6.3-8.2) g/dL Albumin (3.5-5.0) g/dL TSH (0.465-4.680) mIU/L Urine Color Colorless Urine Appearance Clear (Clear) Urine pH 6.5 (5.0-8.0) Ur Specific [place] 1.014 (1.001-1.035) Urine Protein Negative (Negative) Urine Glucose (UA) Negative (Negative) Urine Ketones Negative (Negative) Urine Blood Negative (Negative) Urine Nitrite Negative (Negative) Urine Bilirubin Negative (Negative) Urine Urobilinogen <2.0 (<2.0) mg/dL Ur Leukocyte Esterase Negative (Negative) Influenza Type A (PCR) Not Detected (Not Detectd) Influenza Type B (PCR) Not Detected (Not Detectd) RSV (PCR) Not Detected (Not Detectd) SARS-CoV-2 (PCR) Not Detected (Not Detectd) Disposition Clinical Impression: Cellulitis Disposition: HOME SELF-CARE Condition: Good Instructions (If sedation given, give patient instructions): Cellulitis (ED) Prescriptions: Cephalexin [Keflex] 500 mg PO Q6HR #28 cap Cephalexin [Keflex] 500 mg PO Q6HR #28 cap Is patient prescribed a controlled substance at d/c from ED?: No Referrals: Jonatan Ferrera MD [Primary Care Provider] - 1-2 days
== END 2023-09-10 03:00 | disposition home or self-care (01) ==
LOC: EC 22:50
DX: L03.116 Cellulitis of left lower limb (principal); L03.115 Cellulitis of right lower limb; J44.9 Chronic obstructive pulmonary disease, unspecified; I10 Essential (primary) hypertension; Z79.899 Other long term (current) drug therapy; Z88.7 Allergy status to serum and vaccine; Z91.041 Radiographic dye allergy status; Z88.5 Allergy status to narcotic agent; Z88.6 Allergy status to analgesic agent; Z86.59 Personal history of other mental and behavioral disorders; Z20.822 Contact with and (suspected) exposure to COVID-19
CPT/HCPCS: 36415; 71046; 80053; 81003; 83605; 84443; 85025; 87040; 87636; 99283

== ENCOUNTER 2023-09-22 11:41 | Emergency (ER) | payer MEDICARE, BC ==
[2023-09-22 12:23] VITALS: TEMP 97.3
[2023-09-22 15:10] VITALS: RESP 18
[2023-09-22] MEDS: KETOROLAC 15 MG/ML 1 ML VIAL IVP STA (15:49)
[2023-09-22] MEDS: hydrALAZINE HCL 20 MG/ML 1 ML VIAL IVP STA (15:51)
[2023-09-22] MEDS: diphenhydrAMINE 50 MG/ML 1 ML VIAL IVP STA (15:51)
[2023-09-22] MEDS: SODIUM CHLORIDE 0.9% 1,000 ML IV STA (15:52)
[2023-09-22 15:58] LABS: Basophils # (A) 0.1 k/uL (0-0.2); Basophils % (A) 1 %; Eosinophils # (A) 0.4 k/uL (0-0.7); Eosinophils % (A) 4 %; HCT 41.8 % (34.0-46.0); HGB 13.9 gm/dL (11.4-16.0); Lymphocytes # (A) 1.5 k/uL (1.0-4.8); Lymphocytes % (A) 16 %; MCHC 33.2 g/dL (31.0-37.0); MCV 93.5 fL (80.0-100.0); Mean Platelet Volume 7.1; Monocytes # (A) 0.6 k/uL (0-1.0); Monocytes % (A) 6 %; Neutrophils # (A) 6.8 k/uL (1.3-7.7); Neutrophils % (A) 72 %; Platelet Count 303 k/uL (150-450); RBC 4.47 m/uL (3.80-5.40); RDW 12.6 % (11.5-15.5); WBC 9.4 k/uL (3.8-10.6)
[2023-09-22 16:12] LABS: ALT 31 U/L (4-34); AST 34 U/L (14-36); African American GFR (CKD) 87 (>60 ml/min/1.73 sqM); Albumin 4.1 g/dL (3.5-5.0); Alkaline Phosphatase 87 U/L (38-126); Anion Gap 10 mmol/L; Blood Urea Nitrogen 19 mg/dL (7-17); Calcium 9.4 mg/dL (8.4-10.2); Carbon Dioxide 29 mmol/L (22-30); Chloride 101 mmol/L (98-107); Glucose 100 mg/dL (74-99); Magnesium 2.4 mg/dL (1.6-2.3); Non-African American GFR(CKD) 75 (>60 ml/min/1.73 sqM); Sodium 140 mmol/L (137-145); Total Bilirubin 0.5 mg/dL (0.2-1.3); Total Protein 6.7 g/dL (6.3-8.2)
--- NOTE | 2023-09-22 16:13 | XR ---
EXAMINATION TYPE: XR knee complete RT DATE OF EXAM: 09/22/2023 4:08 PM CLINICAL INDICATION:Female, 73 years old with history of leg edema; COMPARISON: None. TECHNIQUE: XR knee complete RT; examined in Frontal, lateral and oblique projections. FINDINGS: No evidence of any acute osseous pathology, or joint effusion is noted. Diffuse soft tiss ue swelling throughout the leg. Tricompartmental osteophyte formation involving the femoral condyles, tibial plateau and patella. Mild joint space narrowing. IMPRESSION: 1. Diffuse soft tissue swelling throughout the leg without, No acute osseous pathology. 2. Mild tricompartmental osteoarthritic changes.
--- NOTE | 2023-09-22 16:14 | XR ---
EXAMINATION TYPE: XR chest 1V portable DATE OF EXAM: 09/22/2023 4:08 PM CLINICAL INDICATION:Female, 73 years old with history of cough; [facility] COMPARISON: Chest radiographs from 09/09/2023 TECHNIQUE: XR chest 1V portable Frontal view of the chest. FINDINGS: Lungs/Pleura: Prominent interstitial lung markings are seen scattered throughout the lungs with vasu ening of the diaphragm and increased lucency of the lung apices. No evidence of focal consolidation, pneumothorax or pleural effusion. Pulmonary vascularity: Unremarkable. Heart/mediastinum: Cardiomediastinal silhouette is unremarkable. Musculoskeletal: No acute osseous pathology. IMPRESSION: Chronic changes without acute pulmonary process. No significant change from prior.
--- NOTE | 2023-09-22 16:52 | US ---
EXAMINATION TYPE: US venous doppler duplex LE BI DATE OF EXAM: 09/22/2023 4:38 PM COMPARISON: NONE CLINICAL INDICATION: Female, 73 years old with history of leg edema; edema SIDE PERFORMED: Bilateral TECHNIQUE: The lower extremity deep venous system is examined utilizing real time linear array sonog macey with graded compression, doppler sonography and color-flow sonography. VESSELS IMAGED: Common Femoral Vein Deep Femoral Vein Greater Saphenous Vein * Femoral Vein Popliteal Vein Small Saphenous Vein * Proximal Calf Veins (* superficial vessels) Right Leg: Negative for DVT Left Leg: Negative for DVT IMPRESSION: Grayscale, color doppler, spectral doppler imaging performed of the deep veins of the lo wer extremities. There is normal flow, compressibility, vascular waveforms.
--- NOTE | 2023-09-22 17:54 | ED ---
General Adult HPI - General Chief complaint: Recheck/Abnormal Lab/Rx Stated complaint: HTN-Fluid retention Time Seen by Provider: 09/22/23 15:13 Source: patient, RN notes reviewed, old records reviewed Mode of arrival: wheelchair Limitations: no limitations - History of Present Illness Initial comments: Patient is a 73-year-old female with past medical history remarkable for bipolar, COPD, chronic bronchitis, hypertension. Presents with numerous comp laints. Primary complaint is bilateral lower extremity erythema and mild swelling. Was recent started on Keflex over concern for cellulitis by her PCP. Was also placed on a new bipolar medication. Does not believe it is working. Is complaining of itching with no rash. Also endorses a productive cough which is chronic for the patient and unchanged. Denies any chest pain, abdominal pain, nausea, vomiting. Presents complaining of chronic twitching in her right hand as well. No other acute complaints at this time. Is concerned she may be having ALLERGIC reaction to an antibiotic but she is uncertain. No history of CHF.Ishman endorses worsening edema bilateral lower extremities as well as right knee pain. - Related Data Home Medications Medication Instructions Recorded Confirmed Acetaminophen Tab [Tylenol] 650 mg PO Q4H PRN 07/28/20 07/29/20 Albuterol Inhaler [Ventolin Hfa 1 - 2 puff INHALATION RT-QID PRN 07/28/20 07/29/20 Inhaler] Cetirizine HCl 10 mg PO DAILY 07/28/20 07/29/20 Montelukast [Singulair] 10 mg PO HS 07/28/20 07/29/20 Vitamin B Complex 1 cap PO DAILY 07/28/20 07/29/20 Previous Rx's Medication Instructions Recorded Albuterol Nebulized [Ventolin 2.5 mg INHALATION RT-QID #1 ml 01/29/20 Nebulized] ARIPiprazole [Abilify Maintena] 300 mg PO QMONTHLY #1 syr 08/06/20 ARIPiprazole [Abilify] 10 mg PO DAILY 13 Days tab 08/06/20 Calcium Carb-Vit D 500Mg-5Mcg 1 each PO DAILY tab 08/06/20 [Oscal 500+D 5 Mcg (200 Iu)] Furosemide [Lasix] 40 mg PO BID@0900,1600 30 Days tab 11/19/20 Metoprolol Tartrate [Lopressor] 50 mg PO BID 30 Days tab 08/06/20 Sennosides-Docusate Sodium 1 each PO BID 30 Days tab 08/06/20 [Senokot-S] amLODIPine [Norvasc] 5 mg PO BID 30 Days tab 08/06/20 cloNIDine 0.3 MG/24HR PATCH 1 patch TRANSDERM Q7D 28 Days #4 08/06/20 [Catapres-TTS] patch hydrALAZINE HCL [Apresoline] 25 mg PO TID 30 Days tab 08/06/20 lisinopriL [Zestril] 40 mg PO DAILY 30 Days tab 08/06/20 traZODone HCL [Desyrel] 25 mg PO HS 30 Days tab 08/06/20 Cephalexin [Keflex] 500 mg PO Q6HR #28 cap 09/10/23 Cephalexin [Keflex] 500 mg PO Q6HR #28 cap 09/10/23 Sulfamethox-Tmp 800-160Mg [Bactrim 1 tab PO Q12HR 7 Days #14 tab 09/22/23 DS 800-160 mg] Allergies Allergy/AdvReac Type Severity Reaction Status Date / Time influenza virus vaccine, Allergy Swelling Verified 09/22/23 12:19 specific Iodine and Iodide Containing Allergy Rash/Hives Verified 09/22/23 12:19 Produc aspirin AdvReac urinating Verified 09/22/23 12:19 blood codeine AdvReac Nausea Verified 09/22/23 12:19 Review of Systems ROS Statement: Those systems with pertinent positive or pertinent negative responses have been documented in the HPI. Review of Systems: CONST: Denies fever EYES: Denies blurry vision ENT: Denies nasal congestion C/V: Denies Chest pain RESP: Denies shortness of breath GI: Denies abdominal pain : Denies dysuria SKIN: Endorses erythema of the bilateral lower extremities, swelling. MSK: Endorses acute on chronic right knee pain. NEURO: Denies headache ROS Other: All systems not noted in ROS Statement are negative. Past Medical History Past Medical History: COPD, Hypertension History of Any Multi-Drug Resistant Organisms: None Reported Past Surgical History: Hysterectomy, Orthopedic Surgery Past Psychological History: Bipolar Smoking Status: Never smoker Past Alcohol Use History: Occasional Past Drug Use History: None Reported General Exam - General Exam Comments Initial Comments: General: Appears in no acute distress. HEAD: Normal with no signs of head trauma. EYES: PERRLA, EOMI, conjunctiva normal, no discharge. ENT: Hearing grossly intact, normal oropharynx. RESPIRATORY: Clear breath sounds bilaterally. No wheezes, rales, or rhonchi. C/V: Regular rate and rhythm. S1 and S2 auscultated, no edema, peripheral pulses 2+ and intact throughout ABD: Abd is soft, nontender, nondistended EXT: Normal range of motion, no obvious deformity. Mild tenderness palpation over the right knee with movement and on palpation. SKIN: Mild edema bilateral lower extremities with some erythema in the sock distribution. NEURO: Alert and oriented x 4. Limitations: no limitations Course Vital Signs 09/22/23 09/22/23 09/22/23 12:19 14:25 15:08 Temperature 97.3 F L Pulse Rate 81 74 80 Respiratory 16 16 18 Rate Blood Pressure 214/103 209/102 215/103 O2 Sat by Pulse 95 98 96 Oximetry 09/22/23 09/22/23 15:25 18:08 Temperature Pulse Rate 71 87 Respiratory 18 18 Rate Blood Pressure 166/77 132/88 O2 Sat by Pulse 98 98 Oximetry Medical Decision Making - Medical Decision Making Was pt. sent in by a medical professional or institution (, PA, VASCULAR SONOGRAPHER, urgent care, hospital, or care home...) When possible be specific @ -No Did you speak to anyone other than the patient for history (EMS, parent, family, police, friend...)? What history was obtained from this source @ -No Did you review nursing and triage notes (agree or disagree)? Why? @ -I reviewed and agree with nursing and triage notes Were old charts reviewed (outside hosp., previous admission, EMS record, old EKG, old radiological studies, urgent care reports/EKG's, care home records)? Report findings @ -Old charts reviewed Differential Diagnosis (chest pain, altered mental status, abdominal pain women, abdominal pain men, vaginal bleeding, weakness, fever, dyspnea, syncope, headache, dizziness, GI bleed, back pain, seizure, CVA, palpatations, mental health, musculoskeletal)? @ -Differential Musculoskeletal Muscular strain, contusion, ligament sprain, fracture, arthritis, septic arthritis, bursitis, cellulitis, muscle spasm, nerve compression, DVT, arterial occlusion, herpes zoster, electrolyte abnormality, tumor.... This is not meant to be in all inclusive list EKG interpreted by me (3pts min.). @ -As above X-rays interpreted by me (1pt min.). @ -Chest x-ray Reveals no obvious acute cardiopulmonary process, right knee x- ray unremarkable. CT interpreted by me (1pt min.). @ -None done U/S interpreted by me (1pt. min.). @ -Venous duplex ultrasound is negative for DVTs. What testing was considered but not performed or refused? (CT, X-rays, U/S, labs)? Why? @ -None What meds were considered but not given or refused? Why? @ -None Did you discuss the management of the patient with other professionals (professionals i.e. , PA, VASCULAR SONOGRAPHER, lab, RT, psych nurse, social human services assistants, web manager, teacher, light armored vehicle officer, case maker)? Give summary @ -No Was smoking cessation discussed for >3mins.? @ -No Was critical care preformed (if so, how long)? @ -No Were there social determinants of health that impacted care today? How? (Homelessness, low income, unemployed, alcoholism, drug addiction, transportation, low edu. Level, literacy, decrease access to med. care, [facility], rehab)? @ -No Was there de-escalation of care discussed even if they declined (Discuss DNR or withdrawal of care, Hospice)? DNR status @ -No What co-morbidities impacted this encounter? (DM, HTN, Smoking, COPD, CAD, Cancer, CVA, ARF, Chemo, Hep., AIDS, mental health diagnosis, sleep apnea, morbid obesity)? @ -None Was patient admitted / discharged? Hospital course, mention meds given and route, prescriptions, significant lab abnormalities, going to OR and other pertinent info. @ -Patient presents with multiple complaints. Primary complaint is concerned for reaction to Keflex that she is itching. Patiently given Benadryl. She was hypertensive in triage however blood pressure was taken over a shirt. At beds berenice, patient is slightly hypertensive but it is improved to 166/77. We will administer a small fluid bolus as well as IV Toradol. Patient agreement this plan. Vital signs within acceptable limits otherwise. Patient's labs are all within acceptable limits. Imaging unremarkable. I discussed results with the patient. We will switch antibiotics to Bactrim at this time and she has follow-up with her PCP on Monday. Recommend she make that follow-up. She just started her bipolar medication, I recommended she stop until she follows up with PCP who started it. She was in agreement this plan. Presents with her friend who helps take care of her also expressed understanding. She'll be discharged home at this time. Vital signs within normal limits. Patient resting comfortably. I will provide the patient with a prescription for Bactrim. I instructed the patient to follow up with their PCP in the next 1-3 days. I explained that the patient should return to the emergency department if they experience any worsening symptoms. Strict return precautions were discussed with the patient. The patient expressed understanding of these instructions. I answered all questions that the patient had. The patient was discharged home in good condition with their prescriptions and follow up information. Undiagnosed new problem with uncertain prognosis? @ -No Drug Therapy requiring intensive monitoring for toxicity (Heparin, Nitro, Insulin, Cardizem)? @ -No Were any procedures done? @ -No Diagnosis/symptom? @ -Hypertension, leg cellulitis Acute, or Chronic, or Acute on Chronic? @ -Acute Uncomplicated (without systemic symptoms) or Complicated (systemic symptoms)? @ -Complicated Side effects of treatment? @ -No Exacerbation, Progression, or Severe Exacerbation? @ -No Poses a threat to life or bodily function? How? (Chest pain, [place], [place], pneumonia, PE, COPD, DKA, ARF, appy, cholecystitis, CVA, Diverticulitis, Homicidal, Suicidal, threat to staff... and all critical care pts) @ -No - Lab Data Result diagrams: 09/22/23 15:35 09/22/23 15:35 Lab Results 09/22/23 09/22/23 09/22/23 Range/Units 15:35 15:35 15:35 WBC 9.4 (3.8-10.6) k/uL RBC 4.47 (3.80-5.40) m/uL Hgb 13.9 (11.4-16.0) gm/dL Hct 41.8 (34.0-46.0) % MCV 93.5 (80.0-100.0) fL MCH 31.0 (25.0-35.0) pg MCHC 33.2 (31.0-37.0) g/dL RDW 12.6 (11.5-15.5) % Plt Count 303 (150-450) k/uL MPV 7.1 Neutrophils % 72 % Lymphocytes % 16 % Monocytes % 6 % Eosinophils % 4 % Basophils % 1 % Neutrophils # 6.8 (1.3-7.7) k/uL Lymphocytes # 1.5 (1.0-4.8) k/uL Monocytes # 0.6 (0-1.0) k/uL Eosinophils # 0.4 (0-0.7) k/uL Basophils # 0.1 (0-0.2) k/uL Sodium 140 (137-145) mmol/L Potassium 4.0 (3.5-5.1) mmol/L Chloride 101 (98-107) mmol/L Carbon Dioxide 29 (22-30) mmol/L Anion Gap 10 mmol/L BUN 19 H (7-17) mg/dL Creatinine 0.79 (0.52-1.04) mg/dL Est GFR (CKD-EPI)AfAm 87 (>60 ml/min/1.73 sqM) Est GFR (CKD-EPI)NonAf 75 (>60 ml/min/1.73 sqM) Glucose 100 H (74-99) mg/dL Plasma Lactic Acid David 0.9 (0.7-2.0) mmol/L Calcium 9.4 (8.4-10.2) mg/dL Magnesium 2.4 H (1.6-2.3) mg/dL Total Bilirubin 0.5 (0.2-1.3) mg/dL AST 34 (14-36) U/L ALT 31 (4-34) U/L Alkaline Phosphatase 87 (38-126) U/L NT-Pro-B Natriuret Pep pg/mL Total Protein 6.7 (6.3-8.2) g/dL Albumin 4.1 (3.5-5.0) g/dL Influenza Type A (PCR) (Not Detectd) Influenza Type B (PCR) (Not Detectd) RSV (PCR) (Not Detectd) SARS-CoV-2 (PCR) (Not Detectd) 09/22/23 09/22/23 Range/Units 15:35 16:18 WBC (3.8-10.6) k/uL RBC (3.80-5.40) m/uL Hgb (11.4-16.0) gm/dL Hct (34.0-46.0) % MCV (80.0-100.0) fL MCH (25.0-35.0) pg MCHC (31.0-37.0) g/dL RDW (11.5-15.5) % Plt Count (150-450) k/uL MPV Neutrophils % % Lymphocytes % % Monocytes % % Eosinophils % % Basophils % % Neutrophils # (1.3-7.7) k/uL Lymphocytes # (1.0-4.8) k/uL Monocytes # (0-1.0) k/uL Eosinophils # (0-0.7) k/uL Basophils # (0-0.2) k/uL Sodium (137-145) mmol/L Potassium (3.5-5.1) mmol/L Chloride (98-107) mmol/L Carbon Dioxide (22-30) mmol/L Anion Gap mmol/L BUN (7-17) mg/dL Creatinine (0.52-1.04) mg/dL Est GFR (CKD-EPI)AfAm (>60 ml/min/1.73 sqM) Est GFR (CKD-EPI)NonAf (>60 ml/min/1.73 sqM) Glucose (74-99) mg/dL Plasma Lactic Acid David (0.7-2.0) mmol/L Calcium (8.4-10.2) mg/dL Magnesium (1.6-2.3) mg/dL Total Bilirubin (0.2-1.3) mg/dL AST (14-36) U/L ALT (4-34) U/L Alkaline Phosphatase (38-126) U/L NT-Pro-B Natriuret Pep 218 pg/mL Total Protein (6.3-8.2) g/dL Albumin (3.5-5.0) g/dL Influenza Type A (PCR) Not Detected (Not Detectd) Influenza Type B (PCR) Not Detected (Not Detectd) RSV (PCR) Not Detected (Not Detectd) SARS-CoV-2 (PCR) Not Detected (Not Detectd) Disposition Clinical Impression: Hypertension, Cellulitis Disposition: HOME SELF-CARE Condition: Good Instructions (If sedation given, give patient instructions): Cellulitis (ED) Prescriptions: Sulfamethox-Tmp 800-160Mg [Bactrim DS 800-160 mg] 1 tab PO Q12HR 7 Days #14 tab Is patient prescribed a controlled substance at d/c from ED?: No Referrals: Jonatan Ferrera MD [Primary Care Provider] - 1-2 days Time of Disposition: 17:45
[2023-09-22] MEDS: SULFAMETHOX-TMP 800-160MG 1 EACH TAB PO STA (18:00)
[2023-09-22 18:09] VITALS: BP 132/88; PULSE 87
== END 2023-09-22 18:09 | disposition home or self-care (01) ==
LOC: EC 11:41
DX: I10 Essential (primary) hypertension (principal); R22.43 Localized swelling, mass and lump, lower limb, bilateral; L03.116 Cellulitis of left lower limb; L03.115 Cellulitis of right lower limb; J44.9 Chronic obstructive pulmonary disease, unspecified; Z20.822 Contact with and (suspected) exposure to COVID-19; Z88.5 Allergy status to narcotic agent; Z88.6 Allergy status to analgesic agent; Z88.7 Allergy status to serum and vaccine; Z91.041 Radiographic dye allergy status; Z79.899 Other long term (current) drug therapy
CPT/HCPCS: 99284 ×2; 96374 ×2; 96375 ×2; 36415; 83880; 80053; 83605; 83735; 85025; 87636; 73562; 71045; 93970; J1200; J1885